=== PATIENT | male | born 1940 | race Caucasian/White ===

== ENCOUNTER 2016-10-28 00:09 | Observation (INO) | payer OTHER, BC ==
--- NOTE | 2016-10-28 00:27 | EDPHY ---
H & P Stated Complaint: pt fell, pt thinks related to combo of severe restless legs/ marijuana use HPI/ROS: HPI CHIEF COMPLAINT: Syncope, fall, head injury, restless leg syndrome HISTORY OF PRESENT ILLNESS: This patient very pleasant 76-year-old male who presents emergency room by private vehicle with his after he had a syncopal episode in the bathroom with head strike. Sustained a forehead laceration. He does report to me that he had a syncopal episode. No preceding symptoms. He additionally tells me that he has very bad restless leg syndrome he takes 3000 mg of Neurontin as well as Requip. But he has been out of his Requip for the past 2 hours. Upon arrival here to the emergency room he required a wheelchair back to ER room 4 where I greeted him. He was placed on a full director of cardiac rehabilitation his heart rate is been noted to be in the 30s to 40s. His does report that he has a low heart rate. However not typically in the 30s. The patient appears very restless with abnormal leg movement. However during my interview and exam the patient has waxing waning mental status and is somewhat unresponsive at times. Patient denies chest pain or shortness of breath. He does complain of a headache. Due to the patient's altered mental status. Patient has been sent to CT scan of his head. Past Medical History: Hypertension, restless leg syndrome, Follicular lymphoma , history of abscess drainage Past Surgical History: No recent surgery Social History: Endorses daily use of marijuana, denies illicit drugs or alcohol. Lives here in the summer. However resides in [place]. His physicians are in [place]. Family History: Noncontributory. ROS REVIEW OF SYSTEMS: A comprehensive 10 point review of systems is otherwise negative aside from elements mentioned in the history of present illness. Exam Constitutional very restless, agitated, waxing waning mental status, triage nursing summary reviewed, vital signs reviewed, awake/alert. Eyes normal conjunctivae and sclera, EOMI, PERRLA. HENT head/neck: 4 cm horizontal forehead laceration. Otherwise atraumatic exam. No neck pain moist mucus membranes, no epistaxis, neck supple/ no meningismus, no raccoon eyes. Respiratory clear to auscultation bilaterally, normal breath sounds, no respiratory distress, no wheezing. Cardiovascular bradycardic, regular rhythm, no murmur, no edema, distal pulses normal. Gastrointestinal soft, non-tender, no rebound, no guarding, normal bowel sounds, no distension, no pulsatile mass. Genitourinary no CVA tenderness. Musculoskeletal no midline vertebral tenderness, full range of motion, no calf swelling, no tenderness of extremities, no meningismus, good pulses, neurovascularly intact. Skin pink, warm, & dry, no rash, skin atraumatic. Neurologic waxing and waning mental status, sometimes lucid, sometimes unresponsive, abnormal leg movements appears agitated. Psychiatric waxing waning mental status, agitated, restless, lethargic at times. Heme/Lymph/Immune no lymphadenopathy. Differential Diagnosis: Includes but is not limited to in a particular order symptomatic bradycardia, heart block, dehydration, electrolyte disturbance, intracranial trauma, head bleed, skull fracture, subdural, epidural, subarachnoid, forehead laceration, restless leg syndrome, medication overdose, medication withdrawal, marijuana intoxication Medical Decision Making: Plan for this patient he is noted to be altered with waxing waning mental status after head trauma. Will proceed directly to CT scan to rule out significant trauma. Be placed on full director of cardiac rehabilitation will obtain EKG due to his bradycardia, obtain blood work, IV establishment, close cardiac monitoring. Re-evaluate closely. Re-evaluation: EKG interpretation by me on record in [facility] system. Impression time of EKG 05/15/1999, this is sinus arrhythmia rate of 52. Q-waves noted V1 V2 V3. No ST elevation. NE interval noted to be 196. No evidence of heart block. No old EKG to compare this to. 0104AM: The patient is now back from CT. He speaking to me coherently. His legs very restless. He denies any complaints at this time. Due to him being so restless I have ordered him IV Ativan 1 mg. His current heart rate is 67 pulse ox 96% on room air, respiratory rate 18, blood pressure 119/76. Laceration Repair Procedure: Verbal Consent was obtained, Under sterile conditions, The patient had lidocaine with epinephrine used approximately 4ccs to local anesthetize the forehead 4 cm horizontal Laceration. The wound was copiously irrigated with sterile fluid, the wound was explored for foreign bodies there were none visualized, the wound was explored with a sterile glove to the base. There are no deep structures involved, including no arterial injury. TWO interrupted 5.O PROLENE Sutures were placed in this patient's laceration. He had good close approximation of the wound edges. He Tolerated this well. ED CT scan head and neck without contrast for trauma showed no acute traumatic injury. 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 0121AM: At this time this patient is doing better with 1 mg IV Ativan. 0125AM: I did re-evaluate this patient this time. Blood pressure 90/78. Heart rate 71. Pulse ox 93% on 2 L he is stable. He is mentating appropriately with me. He did receive 1 mg IV Ativan for restless leg syndrome. This is not really improve much of his abnormal leg movements. He does appear slightly more relaxed. I have consult the hospitalist service for admission reason for admission is syncope, transient bradycardia, waxing waning mental status. Source: Patient - Personal History Current Tetanus Diphtheria and Acellular Pertussis (TDAP): Unsure - Medical/Surgical History Hx Asthma: No Hx Chronic Respiratory Disease: No Hx Diabetes: No Hx Cardiac Disease: Yes Hx Renal Disease: No Hx Cirrhosis: No Hx Alcoholism: No Hx HIV/AIDS: No Hx Splenectomy or Spleen Trauma: No Other PMH: lymphoma, restless leg syndrome, hypertension, sleep apnea, ongoing abcess on buttock, multiple surg related to abcess, laminectomy x 3, multiple hand surg - Social History Smoking Status: Former smoker Constitutional: Initial Vital Signs Temperature (C) 36.7 C 10/28/16 00:12 Heart Rate 60 10/28/16 00:12 Respiratory Rate 16 10/28/16 00:12 Blood Pressure 129/80 H 10/28/16 00:12 O2 Sat (%) 93 10/28/16 00:12 O2 Delivery Mode Nasal Cannula O2 (L/minute) 2 Allergies/Adverse Reactions: diphenhydramine Allergy (Unknown, Unverified 10/29/16 13:53) Home Medications: Medication Instructions Recorded Modafinil [Provigil] 300 mg PO DAILY 10/28/16 Naproxen Sodium [Aleve 220 MG (*)] 220 - 440 mg PO DAILY PRN 10/28/16 Sellers-3 Fatty Acids [Fish Oil 1000 1,000 mg PO DAILY 10/28/16 mg (*)] Valacyclovir HCl [Valtrex] 1,000 mg PO BID 10/28/16 Acetaminophen [Tylenol 325mg (*)] 650 mg PO Q4HRS PRN #0 tab 10/29/16 Gabapentin 2,400 mg PO HS #90 tablet 10/29/16 Valsartan [Diovan (*)] 80 mg PO BID #60 tab 10/29/16 amLODIPine BESYLATE [Norvasc 5 mg 5 mg PO DAILY #30 tab 10/29/16 (*)] rOPINIRole HCL [Requip 5mg (*)] 10 mg PO HS #36 tab 10/29/16 rOPINIRole HCL [Ropinirole HCl] 1 mg PO HS #63 tablet 10/29/16 Medical Decision Making - Data Points Laboratory Results: Laboratory Results 10/28/16 00:40 10/28/16 00:40 Medications Given: Discontinued Medications Amlodipine Besylate (Norvasc) 5 mg PO DAILY [facility] Stop: 04/26/17 14:59 Last Admin: 10/29/16 08:58 Dose: 5 mg Enoxaparin Sodium (Lovenox) 40 mg SC DAILY [facility] Stop: 04/26/17 15:59 Last Admin: 10/29/16 08:53 Dose: 40 mg Gabapentin (Neurontin) 1,000 mg PO EDNOW ONE Stop: 10/28/16 01:44 Last Admin: 10/28/16 01:52 Dose: Not Given Gabapentin (Neurontin) 200 mg PO ONCE ONE Stop: 10/28/16 02:01 Last Admin: 10/28/16 02:35 Dose: Not Given Gabapentin (Neurontin) 800 mg PO ONCE ONE Stop: 10/28/16 02:01 Last Admin: 10/28/16 01:52 Dose: 200 mg Gabapentin (Neurontin) 1,400 mg PO EDNOW ONE Stop: 10/28/16 03:16 Last Admin: 10/28/16 03:28 Dose: Not Given Gabapentin (Neurontin) 1,200 mg PO ONCE ONE Stop: 10/28/16 03:31 Last Admin: 10/28/16 03:22 Dose: 1,200 mg Gabapentin (Neurontin) 200 mg PO ONCE ONE Stop: 10/28/16 03:31 Last Admin: 10/28/16 03:27 Dose: 200 mg Gabapentin (Neurontin) 2,400 mg PO HS [facility] Stop: 04/26/17 20:59 Last Admin: 10/28/16 21:41 Dose: 2,400 mg Sodium Chloride (Ns) 1,000 mls @ 0 mls/hr IV EDNOW ONE; Wide Open PRN Reason: Protocol Stop: 10/28/16 00:40 Last Admin: 10/28/16 01:07 Dose: 1,000 mls Lorazepam (Ativan Injection) 1 mg IVP EDNOW ONE Stop: 10/28/16 01:05 Last Admin: 10/28/16 01:07 Dose: 1 mg Modafinil (Provigil) 300 mg PO DAILY [facility] Stop: 04/26/17 13:29 Last Admin: 10/29/16 08:54 Dose: 300 mg [id number] Ethyl Esters (Fish Oil) 1,000 mg PO DAILY [facility] Stop: 04/27/17 08:59 Last Admin: 10/29/16 08:54 Dose: 1,000 mg Oxycodone HCl (Oxycodone Ir) 5 mg PO ONCE ONE Stop: 10/28/16 01:56 Last Admin: 10/28/16 02:06 Dose: 5 mg Oxycodone HCl (Oxycodone Ir) 5 mg PO Q6 [facility] Stop: 11/07/16 05:59 Last Admin: 10/29/16 06:13 Dose: Not Given Ropinirole HCl (Requip) 1 mg PO EDNOW ONE Stop: 10/28/16 01:34 Last Admin: 10/28/16 01:50 Dose: 1 mg Ropinirole HCl (Requip) 1 mg PO ONCE ONE Stop: 10/28/16 02:28 Last Admin: 10/28/16 02:34 Dose: 1 mg Ropinirole HCl (Requip) 10 mg PO EDNOW ONE Stop: 10/28/16 03:13 Last Admin: 10/28/16 03:26 Dose: Not Given Ropinirole HCl (Requip) 10 mg PO EDNOW ONE Stop: 10/28/16 03:16 Last Admin: 10/28/16 03:23 Dose: 10 mg Ropinirole HCl (Requip) 10 mg PO HS [facility] Stop: 04/26/17 20:59 Last Admin: 10/28/16 21:42 Dose: 10 mg Valacyclovir HCl (Valtrex) 1,000 mg PO BID [facility] Stop: 04/26/17 20:59 Last Admin: 10/29/16 09:18 Dose: Not Given Valsartan (Diovan) 80 mg PO BID [facility] Stop: 04/26/17 20:59 Last Admin: 10/29/16 08:55 Dose: 80 mg Departure - Departure Disposition: [facility] Inpatient Acute Clinical Impression: Bradycardia, Laceration Head injury Qualifiers: Encounter type: initial encounter Qualified Code(s): S09.90XA - Unspecified injury of head, initial encounter Altered mental status Qualifiers: Altered mental status type: unspecified Qualified Code(s): R41.82 - Altered mental status, unspecified Condition: Fair
[2016-10-28] MEDS ORDERED: NS 1,000 ML IV ONE (00:39)
--- NOTE | 2016-10-28 00:39 | CPEKG ---
Heart Rate: 52 RR Interval: 1154 P-R Interval: 196 QRSD Interval: 108 QT Interval: 472 QTC Interval: 439 P [place]: 20 QRS [place]: 11 T Wave [place]: 2 EKG Severity - BORDERLINE ECG - EKG Impression: SINUS ARRHYTHMIA, RATE 41-59 EKG Impression: BORDERLINE R WAVE PROGRESSION, ANTERIOR LEADS Electronically Signed By: Nani Wells 28-Oct-2016 15:26:40
[2016-10-28 00:53] LABS: % IMMATURE GRANULYOCYTES 1.9 % (0.0-1.1); ABSOLUTE IMMATURE GRANULOCYTES 0.14 10^3/uL (0.00-0.10); ADD DIFF? NO; ADD MORPH? NO; ADD SCAN? NO; ATYPICAL LYMPHOCYTE FLAG 0 (0-99); FRAGMENT RBC FLAG 0 (0-99); HEMATOCRIT 36.5 % (40.0-51.0); HEMOGLOBIN 13.1 g/dL (13.7-17.5); LEFT SHIFT FLG 0 (0-99); LIPEMIA HEMOLYSIS FLAG 90 (0-99); MEAN CELL HEMOGLOBIN 32.4 pg (27.9-34.1); MEAN CELL HEMOGLOBIN CONCENTR. 35.9 g/dL (32.4-36.7); MEAN CELL VOLUME 90.3 fL (81.5-99.8); MEAN PLATELET VOLUME 9.6 fL (8.7-11.7); PLATELET CLUMPS FLAG 0 (0-99); PLATELET COUNT 218 10^3/uL (150-400); RED BLOOD CELL COUNT 4.04 10^6/uL (4.40-6.38); RED CELL DISTRIBUTION WIDTH 13.3 % (11.5-15.2)
[2016-10-28 00:59] LABS: ALANINE AMINOTRANSFERASE 32 IU/L (21-72); ALBUMIN 3.8 g/dL (3.5-5.0); ALKALINE PHOSPHATASE 88 IU/L (38-126); ANION GAP 9 mEq/L (8-16); APTT 23.7 SEC (23.0-38.0); ASPARTATE AMINOTRANSFERASE 29 IU/L (17-59); BILIRUBIN,TOTAL 0.4 mg/dL (0.1-1.4); BILIRUBIN-CONJUGATED 0.2 mg/dL (0.0-0.5); BILIRUBIN-UNCONJUGATED 0.2 mg/dL (0.0-1.1); CARBON DIOXIDE 28 mEq/l (22-31); CHLORIDE 101 mEq/L (97-110); CREATININE 0.9 mg/dL (0.7-1.3); ETHANOL SERUM < 10 mg/dL (0-10); GLOMERULAR FILTRATION RATE > 60; GLUCOSE 95 mg/dL (70-100); INR 1.05 (0.83-1.16); MAGNESIUM 1.9 mg/dL (1.6-2.3); POTASSIUM 3.7 mEq/L (3.5-5.2); PROTIME(PATIENT) 13.6 SEC (12.0-15.0); SODIUM 138 mEq/L (134-144); TOTAL PROTEIN 6.8 g/dL (6.3-8.2)
[2016-10-28] MEDS ORDERED: LORazepam 2 MG/ML INJ IVP ONE (01:04)
[2016-10-28] MEDS ORDERED: LORazepam 2 MG/ML INJ ONE (01:05)
[2016-10-28 01:11] LABS: CREATINE KINASE-MB FRACTION 1.97 ng/mL (0.00-3.19); TROPONIN I < 0.012 ng/mL (0.000-0.034)
[2016-10-28] MEDS ORDERED: GABAPENTIN 100 MG CAP PO ONE ×3 (01:43→03:30)
[2016-10-28] MEDS: GABAPENTIN 400 MG CAP PO ONE ×2 (01:51→01:52)
[2016-10-28] MEDS ORDERED: LORazepam 2 MG/ML INJ IVP PRN ×2 (01:53→02:10)
[2016-10-28] MEDS ORDERED: ACETAMINOPHEN 325 MG TAB PO PRN (01:53)
[2016-10-28] MEDS ORDERED: ONDANSETRON 4 MG/2 ML VIAL IVP PRN (01:53)
[2016-10-28] MEDS ORDERED: ONDANSETRON DISINTEGRATING 4 MG TAB PO PRN (01:53)
[2016-10-28] MEDS ORDERED: oxyCODONE IR 5 MG TAB PO ONE (01:55)
[2016-10-28] MEDS ORDERED: oxyCODONE IR 5 MG TAB ONE (02:02)
--- NOTE | 2016-10-28 02:59 | GHP ---
[f rep st] HISTORY AND PHYSICAL DATE OF ADMISSION: 10/28/2016 CHIEF COMPLAINT: Possible syncope. HISTORY OF PRESENT ILLNESS: This is a 76-year-old man with a history of restless legs syndrome who presents after a fall. This was unwitnessed. His attention waxes and wanes a little bit. He is ac companied by his , who provides some of the history. Apparently, they live in [place] for 4 mon ths out of the year and live in [place] for the remainder of the year. They have just arrived ou t here. He ran out of his Requip en route and was supposed to refill it today though they arrived a fter the pharmacy had closed. He is in almost constant movements when I am seeing him, his say s that she has seen him like this before though this is one of the worst episodes. In terms of the syncope, this was unwitnessed, his was in the condo, heard a crash, went up to see him and he had a wet towel on his head. He told the ED physician that he passed out though this history has been inconsistent. He was bradycardic and diaphoretic when [facility]. He sustained a laceration to his forehead, which was sutured in the ED. In terms of his restless legs syndrome, his tells me that he was diagnosed with this about 30 y ears ago, he takes Requip and gabapentin. He has had severe episodes before during hospitalizations , and is more associated with anesthesia. Apparently, he has exacerbations when he is off his Requi p, as he is today. He tells me he takes 3 g of gabapentin once at night. He was at one time on Oxy Contin for this. His tells me that he has not slept for the past 2 days because of ongoing movements. PAST MEDICAL/SURGICAL HISTORY: 1. Restless legs syndrome, as above. 2. History of lymphoma, his is not sure exactly which type. 3. History of a chronic perirectal abscess. 4. History of back surgery. 5. History of trigger finger surgery. MEDICATIONS: Please see medication reconciliation. ALLERGIES: Benadryl. FAMILY HISTORY: Reviewed and unremarkable. SOCIAL HISTORY: Accompanied by his . Lives in [place] and in [place]. REVIEW OF SYSTEMS: A 10-point review of systems is conducted and is negative except per HPI. PHYSICAL EXAM: VITAL SIGNS: Blood pressure 155/74, heart rate 74, respiration rate 16, saturating 93% on 2 L. Temperature is 36.7. GENERAL: The patient is a pleasant man, who is quite uncomfortab le moving almost constantly in bed in non rhythmic, bilateral, non choreiform-type movements. HEENT : Shows him to have a laceration with sutures on his forehead. CARDIOVASCULAR: Shows him to be re gular. There are no murmurs, rubs, or gallops. PULMONARY: Lungs clear to auscultation bilaterally . ABDOMEN: Soft, nontender, nondistended. SKIN: Shows no rash. : Shows no Cheema. NEUROLOGIC : Shows him to be waxing and waning. He can tell us where he is and knows who he is. Movements as above. PSYCHIATRIC: Unobtainable. LABS: CBC is relatively unremarkable. INR is normal. Basic metabolic panel, LFTs are normal. Lip ase is negative. Troponin is negative. Alcohol level is normal. DATA: 1. I discussed this with Dr. Garcia. 2. I reviewed preliminary reports on his head CT which are negative. C-spine CT shows nothing acut e but degenerative disease. His chest x-ray, which I personally reviewed and interpreted, shows nor mal heart size. Nothing acute. 3. EKG, which I personally reviewed and interpreted, shows sinus arrhythmia. He has a mild T-wave inversion in lead 3. He is bradycardic with a rate of 52. I do not see any dropped P-waves. There is maybe slow R-wave progressions in the precordial leads. IMPRESSION AND PLAN: A 76-year-old man admitted with syncope as well as severe restless legs syndro me. 1. Syncope: This diagnosis is somewhat unclear to me. It is concerning that he was bradycardic on admission. We will monitor him on telemetry. Trend troponins. Get an echocardiogram in the [facility]. Follow his clinical course. 2. Severe reported restless legs syndrome: I reviewed his old records, he appears to take very hig h doses of ropinirole. I am not really comfortable giving him more than 2 mg currently. He has got ten 1 mg already. I will give him a second. He was given 2 mg of Ativan in the emergency departmen t. I have also given him some oxycodone. I have placed a neurology consult for assistance with thi s. 3. Reported perirectal abscess: Appears to be chronic and not acute. He has no white count at thi s point. 4. Ongoing movements: I have ordered a CK. 5. Code status: His tells me he has never had this addressed before, but she would like him t o be full code. I think this is appropriate. 6. Encephalopathy: He has not slept for 2 days. I think that this is likely due to his ongoing mo vements and sleep. We will him follow closely and see if this resolves when things are better contr olled. /[id number]/MODL
[2016-10-28] MEDS ORDERED: GABAPENTIN 300 MG CAP PO ONE (03:15)
[2016-10-28] MEDS ORDERED: GABAPENTIN 400 MG CAP PO ONE (03:30)
[2016-10-28 04:55] LABS: % IMMATURE GRANULYOCYTES 2.4 % (0.0-1.1); ABSOLUTE IMMATURE GRANULOCYTES 0.16 10^3/uL (0.00-0.10); ADD DIFF? NO; ADD MORPH? NO; ADD SCAN? NO; ATYPICAL LYMPHOCYTE FLAG 0 (0-99); FRAGMENT RBC FLAG 0 (0-99); HEMOGLOBIN 12.2 g/dL (13.7-17.5); LEFT SHIFT FLG 0 (0-99); LIPEMIA HEMOLYSIS FLAG 90 (0-99); MEAN CELL HEMOGLOBIN 32.7 pg (27.9-34.1); MEAN CELL HEMOGLOBIN CONCENTR. 35.9 g/dL (32.4-36.7); MEAN CELL VOLUME 91.2 fL (81.5-99.8); MEAN PLATELET VOLUME 10.2 fL (8.7-11.7); PLATELET CLUMPS FLAG 0 (0-99); PLATELET COUNT 209 10^3/uL (150-400); RED BLOOD CELL COUNT 3.73 10^6/uL (4.40-6.38); RED CELL DISTRIBUTION WIDTH 13.6 % (11.5-15.2)
[2016-10-28 05:03] LABS: ALANINE AMINOTRANSFERASE 32 IU/L (21-72); ALBUMIN 3.4 g/dL (3.5-5.0); ALKALINE PHOSPHATASE 77 IU/L (38-126); ANION GAP 10 mEq/L (8-16); ASPARTATE AMINOTRANSFERASE 32 IU/L (17-59); BILIRUBIN,TOTAL 0.6 mg/dL (0.1-1.4); CALCIUM 8.8 mg/dL (8.5-10.4); CARBON DIOXIDE 26 mEq/l (22-31); CHLORIDE 104 mEq/L (97-110); CREATININE 0.9 mg/dL (0.7-1.3); GLOMERULAR FILTRATION RATE > 60; GLUCOSE 103 mg/dL (70-100); POTASSIUM 3.6 mEq/L (3.5-5.2); SODIUM 140 mEq/L (134-144)
[2016-10-28 05:05] LABS: TROPONIN I < 0.012 ng/mL (0.000-0.034)
[2016-10-28] MEDS: oxyCODONE IR 5 MG TAB PO SCH ×3 (06:00→17:41)
--- NOTE | 2016-10-28 11:11 | PDCONSULT ---
[employer] Note: HOSPITAL NEUROLOGY CONSULT REQUESTING: Vicente Phillips MD REASON: restless leg syndrome HPI: 76 year old man with a history of severe RLS who presented to our facility yesterday due to a syncopal episode. Patient is visiting [place] for an extended period of time. He is originally from [place]. He notes longstanding RLS "for all of my life" that he describes as a severe sense of abnormal movement under the skin of the LEs, but can involve the whole body. This commands the need to move to relieve the symptoms. Symptoms generally manifest around 6pm, but can be intrusive into daytime hours. He states he has been followed by a neurologist in [place] and been maintained on medication for over 10 years. He currently uses gabapentin 3000mg at night and ropinirole 6-12mg at night. He is not sure about the status of his ferritin level. Regardless, he has to take modafinil every day due to daytime sedation. He states the medication helps, but he still gets symptoms, which are seemingly getting worse. He presented to our ED due to a syncopal episode yesterday. He was feeling quite lightheaded and states he didn't feel like himself. By report, his heard a sound in their accommodations and he was on the floor with a wet rag on his head. He seemed out of it. He was transported to the ED where his HR was found to be in the 30s-40s in triage. He was altered. His BP had been noted to be low as well. He was stabilized and transferred to the floor. He notes his RLS symptoms have been very severe over the 2 nights prior to admission. He had not slept those 2 nights. He ran out of ropinirole just before arriving in [place], but couldn't get a refill because the pharmacies were closed. Thus, he had been one night without high dose ropinirole. ROS: As per the HPI, otherwise a complete 12 point ROS was performed and is negative ALLERGIES AND MEDS: As recorded in the EMR - reviewed and reconciled PFSH: As per the intake H&P by Dr. Phillips from yesterday EXAM: VS reviewed in EMR GEN: WDWN laying in NAD HEENT: NCAT, sclera anicteric, conjunctiva not injected, MMM, oropharynx clear, no scalp tenderness NECK: supple, nontender, no meningismus CV: RRR s1 s2 wo m/r/c/g. Carotid pulses 2+ wo bruit NEURO: MS: awake, alert, oriented to all spheres. Speech nondysarthric, but content is tangential. No language disturbance. Follows commands. Attends to both sides. Recent/remote memory grossly intact. Mood euthymic. Good fund of knowledge. CN: pupils 4mm round and reactive. Fundi with sharp discs. VFF. Primary gaze centered. Full ocular motility. Facial sensation preserved. Face symmetric. Hearing grossly intact to finger rub. Palatoglossal movements intact. Shoulder shrug and head turn strong. MOTOR: normal bulk/tone. No adventitial movements. Full power throughout. SENSORY: intact to all modalities throughout. No extinction. COORD: no ataxia FN/HS. Bogdan preserved. REFLEX: plantars down. No clonus. DTRS absent. GAIT: deferred to PT safety eval DATA REVIEW: Labs reviewed in EMR PERSONALLY INTERPRETED RESULTS AND DATA: None IMPRESSION AND RECOMMENDATIONS: // SYNCOPE // RLS // POLYPHARMACY Patient with syncopal episode and evidence of bradycardia and relative hypotension. Syncopal workup ongoing per primary team. With regard to his RLS, he is on extremely high doses of medication. I don't think he is on safe doses of ropinirole or gabapentin. I am not surprised he is needing modafinil to maintain alertness in the daytime. His worsening symptoms are likely due to paradoxical response to his medication, primarily ropinirole (ie augmentation phenomenon). I would advise slowly tapering these medications to discontinuation with a complete washout period of 4 weeks, then consultation with sleep medicine for expert opinion on treatment options, particularly given his prior exposure to typical platform treatment options. He was counseled to avoid caffeine, alcohol and smoking. Defer ferritin level check to outpatient setting. Would avoid benzos and opiates in treatment of RLS given his advanced age, syncope/fall history. Followup with sleep medicine as per above. No further recommendations. Will sign off.
[2016-10-28] MEDS ORDERED: MODAFINIL PO SCH (13:15)
--- NOTE | 2016-10-28 14:12 | ECHO ---
[id number] + + [address] : : [place] [address] : : [phone] + + Adult Echocardiographic Report + -----+ :Name: Rex MCRAE Date: 10/28/2016 08:08 AM : : Hospital Admission Number: [id number] Location : 210: :: 1940 Gender: Male Height: 72 in : :Age: 76 yrs Race: WH Weight: 208 lb : :Reason For Study: Eval LV Fx : : BSA: 2.2 meters2 : :History: Syncope, Restless : + -----+ MMode/2D Measurements \T\ Calculations IVSd: 0.98 cm LVIDd: 5.4 cm FS: 38.0 % Ao root diam: 3.7 cm LVPWd: 1.0 cm LVIDs: 3.3 cm EDV(Teich): 139.3 ml ACS: 2.4 cm ESV(Teich): 45.1 ml EF(Teich): 67.7 % Normal Measurement Values: + + :LVIDd (3.5-5.7cm) IVSd (0.6-1.1cm) LVPWd (0.6-1.1cm) Aortic Root (2.0-3.7cm)Left Atrium (1.5-4.0cm): :LV Vol(d) (76-115ml) LV Vol(s) (29-48ml) Ejec Fraction (50-65%)PV Rick (0.6- 1.2m/s) TV Rick (0.4-1.0m/s) : :MV E Rick (0.8-1.0m/s)MV A Rick (0.3-1.0m/s)LVOT Rick (0.7-1.2m/s) Asc Ao Rick ( 0.9-1.8m/s) : + + Doppler Measurements \T\ Calculations MV E max rick: Ao V2 max: LV V1 max: PA V2 max: 67.6 cm/sec 150.7 cm/sec 127.7 cm/sec 90.9 cm/sec MV A max rick: Ao max PG: LV V1 max PG: PA max P.6 cm/sec 9.1 mmHg 6.5 mmHg 3.3 mmHg MV E/A: 0.94 TR max rick: 274.2 cm/sec TR max P.1 mmHg RAP systole: 5.0 mmHg RVSP(TR): 35.1 mmHg Left Ventricle The left ventricle is normal in size. There is normal left ventricular wall thickness. The left ventricular ejection fraction is normal. There is Doppler evidence for diastolic dysfunction. Ejection Fraction = 65%. No regional wall motion abnormalities noted. Right Ventricle The right ventricle is normal in size and function. Atria The left atrial size is normal. Right atrial size is normal. Mitral Valve The mitral valve is normal in structure and function. There is no evidence of mitral valve prolapse. There is no mitral valve stenosis. There is no mitral regurgitation noted. Tricuspid Valve Normal tricuspid valve. There is trace tricuspid regurgitation. Aortic Valve The aortic valve is not well visualized. There is no aortic stenosis. There is no aortic insufficiency. Pulmonic Valve The pulmonic valve is not well visualized. There is no pulmonic valvular regurgitation. Great Vessels The aortic root is normal size. Pericardium/Pleural There is no pericardial effusion. There is a fat pad seen. Conclusion A complete two-dimensional transthoracic echocardiogram was performed (2D, M-mode, Doppler and color flow Doppler). 1. The patient was quite restless and combative during exam. 2. The left ventricle is normal in size and function. The Ejection Fraction = 65%. 3. The mitral valve is normal in structure and function. 4. The aortic valve is not well visualized. There is no aortic stenosis. There is no aortic insufficiency. 5. No old studies for comparison. Final Reading Physician: Casey Umanzor MD electronically signed on 10/28/2016 02:10 PM Ordering Physician: Vicente Phillips Performed By: Jacques Graham, [facility]
[2016-10-28] MEDS ORDERED: NAPROXEN SODIUM 220 MG TAB PO PRN (14:54)
[2016-10-28] MEDS: MODAFINIL 100 MG TAB PO SCH (15:05)
--- NOTE | 2016-10-28 15:47 | HOSPPROG ---
Hospitalist Progress Note Assessment/Plan: Assessment: 76-year-old male presents with acute mechanical fall in the setting acute encephalopathy, polypharmacy Plan: 1. Mechanical fall. Acute, secondary to polypharmacy with resultant encephalopathy, resulting in unsteady gait -patient continues to be high fall risk, unsafe for discharge home -continue to engage in physical and occupational therapy 2. Acute encephalopathy. Evidenced by global brain dysfunction characterized as confusion, lethargy, all of which are an acute change from patient's baseline , secondary metabolic effects of polypharmacy as well as impaired sleep for the past 2 nights patient has been traveling from [place] to [place] -patient's cognition is improving, but he continues to have some evidence of thought blocking and remains high fall risk 3. Polypharmacy. 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 Betancourt, appreciate Neurology consultation, he recommends long-term taper of ropinirole followed by 4 weeks washout. Given that it is most likely producing amplified, paradoxical affect -continue gabapentin -continue Provigil 4. Suspected obstructive sleep apnea. Placed on CPAP, recommend outpatient sleep study 5. Hypertension chronic, patient has been on 4 agents, with recent up titration is medication -his systolic blood pressures range between 100 and 110, I fear the patient has been somewhat overmedicated, potentiating his above fall -reduced amlodipine to 5 mg daily, reduced valsartan to 80 mg daily -discontinued diuretic and Bystolic given bradycardia and hypotension Diet. Regular Prophylaxis. High risk patient, Lovenox 40 Code. Full Disposition. Upgraded to inpatient admission status, anticipated length stay is greater than 48 hours for reasonable medical necessity including hypotension today with bradycardia, requiring ongoing medication management, as well as persistent encephalopathy and impaired gait, placing the patient high risk mechanical falls, requires ongoing work with therapy. Patient is high risk of recurrent fall and mortality if discharged at this time. Subjective: Counseled patient that his medications are most likely resulting in his worsened leg movements, fall Objective: Vital Signs Temp Pulse Resp BP Pulse Ox 36.7 C 48 L 15 110/54 L 96 10/28/16 11:58 10/28/16 11:58 10/28/16 11:58 10/28/16 11:58 10/28/16 11:58 Laboratory Results 10/28/16 04:16 10/28/16 04:16 10/27/16 10/28/16 10/29/16 05:59 05:59 05:59 Intake Total 1000 Balance 1000 PT 13.6 SEC (12.0-15.0) 10/28/16 00:40 INR 1.05 (0.83-1.16) 10/28/16 00:40 - Time Spent With Patient Time Spent with Patient: greater than 35 minutes Time Spent with Patient: Greater than 35 minutes spent on this patients care, greater than 50% of time spent counseling, educating, and coordinating care regarding the above mentioned plan. - Physical Exam Constitutional: no apparent distress, not in pain, chronically ill appearing, No uncomfortable Cardiovascular: regular rate and rhythym, no murmur, rub, or gallop Respiratory: no respiratory distress, no rales or rhonchi, clear to auscultation Gastrointestinal: normoactive bowel sounds, soft, non-tender abdomen, no palpable masses Skin: other (Small laceration on the 4) Neurologic: AAOx3, sensation intact bilaterally, CN II-XII Intact, other ( Intermittent movements of his legs), No weakness Psychiatric: thought process linear, anxious, other (Somewhat slurred speech), No agitated ICD10 Worksheet Patient Problems: Problems Problem Status Onset Bradycardia Acute Head injury Acute Altered mental status Acute Laceration Acute
--- NOTE | 2016-10-28 15:50 | WOCRNPDOC ---
WOCRN Advanced Assessment Note - Skin Integrity Problem, Advanced Assess Right Perianal Surgical Wound/Incision Dressing Type: Open to Air Exudate Amount: Scant Exudate Color: Reddish/Yellow Exudate Characteristic(s): Serosanguinous Integumentary Issue Intervention: Dressing Applied Abhinav Wound Tissue: Blanching, Intact Abhinav Wound Swelling: None Wound Bed Color: Red Wound Bed Constitution: Smooth Tissue (red, non-granulating) Site Odor: Slight Site Measurement - Head-to-Toe Length X Width X Depth (cm): 0.4cmx0.3cmx0.4cm Skin Integrity Problem Comment: Small, discrete opening to the R of patient's anus, w/ scant exudate. Per patient report, this is a chronic, non-healing wound , previously believed to be either a fistula or tract emmanating from an abscess. He says an abscess was discovered in February 2015, and he underwent an I&D at that time. He was unable to recall the specific location of the abscess, but says he has had multiple assessments by various specialists since then. After an attempted surgical repair, the concensus has been that this tract is non-healing and chronic. Current recommendation from his physician in [place] is to wear briefs to manage the drainage still coming from this wound. Upon assessment today, wound does not have much appreciable depth, only 0.4cm when probed w/ cotton-tipped applicator. The tissue is red and beefy, and bled when site was cleansed and explored. It is possible that the tract is healing in; wound is not deep enough to pack. There is no abhinav-wound erythema or induration, and no fluctuance observed when site palpated. I packed wound w/ Noemí Ag collagen, which will dissolve in wound and also provide some structure to which cells can adhere. His watched the dressing application, and was given some additional supplies to take home for subsequent dressing changes. I spoke to them both about going to the outpatient wound healing center after DC if they want additional input about this wound. Report given to editorial director Aimee.
[2016-10-28] MEDS: amLODIPine BESYLATE 5 MG TAB PO SCH (15:59)
[2016-10-28] MEDS: ENOXAPARIN 40 MG/0.4 ML SYR SC SCH (17:41)
[2016-10-28 19:53] VITALS: RESP 18
[2016-10-28] MEDS ORDERED: GABAPENTIN 300 MG CAP PO SCH (21:00)
[2016-10-28] MEDS ORDERED: NON-FORMULARY NEW DRUG (Valacyclovir Hcl [Valtrex] 1,000 MG) PO SCH (21:00)
[2016-10-28] MEDS ORDERED: GABAPENTIN 400 MG CAP PO SCH (21:00)
[2016-10-28] MEDS: valACYclovir 500 MG TAB PO SCH (21:35)
[2016-10-28] MEDS: VALSARTAN 80 MG TAB PO SCH (21:36)
[2016-10-29] MEDS: oxyCODONE IR 5 MG TAB PO SCH ×2 (03:09→06:13)
[2016-10-29 04:41] LABS: ABSOLUTE IMMATURE GRANULOCYTES 0.13 10^3/uL (0.00-0.10); ADD DIFF? NO; ADD MORPH? NO; ADD SCAN? NO; ATYPICAL LYMPHOCYTE FLAG 0 (0-99); FRAGMENT RBC FLAG 0 (0-99); HEMATOCRIT 34.1 % (40.0-51.0); HEMOGLOBIN 11.9 g/dL (13.7-17.5); LEFT SHIFT FLG 0 (0-99); LIPEMIA HEMOLYSIS FLAG 90 (0-99); MEAN CELL HEMOGLOBIN 32.2 pg (27.9-34.1); MEAN CELL HEMOGLOBIN CONCENTR. 34.9 g/dL (32.4-36.7); MEAN CELL VOLUME 92.4 fL (81.5-99.8); MEAN PLATELET VOLUME 9.3 fL (8.7-11.7); PLATELET CLUMPS FLAG 0 (0-99); PLATELET COUNT 198 10^3/uL (150-400); RED BLOOD CELL COUNT 3.69 10^6/uL (4.40-6.38); RED CELL DISTRIBUTION WIDTH 13.8 % (11.5-15.2)
[2016-10-29 05:07] LABS: ANION GAP 9 mEq/L (8-16); CALCIUM 8.8 mg/dL (8.5-10.4); CARBON DIOXIDE 29 mEq/l (22-31); CHLORIDE 98 mEq/L (97-110); CREATININE 0.8 mg/dL (0.7-1.3); GLOMERULAR FILTRATION RATE > 60; GLUCOSE 100 mg/dL (70-100); POTASSIUM 3.8 mEq/L (3.5-5.2); SODIUM 136 mEq/L (134-144)
[2016-10-29 07:50] VITALS: TEMP 98.4
[2016-10-29] MEDS: ENOXAPARIN 40 MG/0.4 ML SYR SC SCH (08:53)
[2016-10-29] MEDS: MODAFINIL 100 MG TAB PO SCH (08:54)
[2016-10-29] MEDS: VALSARTAN 80 MG TAB PO SCH (08:55)
[2016-10-29] MEDS: amLODIPine BESYLATE 5 MG TAB PO SCH (08:58)
[2016-10-29] MEDS ORDERED: OMEGA-3 FATTY ACIDS 1,000 MG CAP PO SCH (09:00)
[2016-10-29 09:16] VITALS: BP 137/80
[2016-10-29] MEDS: valACYclovir 500 MG TAB PO SCH (09:18)
--- NOTE | 2016-10-29 10:25 | PDIAF ---
- Diagnosis Diagnosis: Fall, Hypertension, Restless Legs Syndrome Code Status: Full Code - Medication Management Discharge Medications: Medications to Continue on Transfer Modafinil [Provigil] 300 mg PO DAILY 10/28/16 [Last Taken Unknown] Naproxen Sodium [Aleve 220 MG (*)] 220 - 440 mg PO DAILY PRN 10/28/16 [Last Taken Unknown] [place]-3 Fatty Acids [Fish Oil 1000 mg (*)] 1,000 mg PO DAILY 10/28/16 [Last Taken Unknown] Valacyclovir HCl [Valtrex] 1,000 mg PO BID 10/28/16 [Last Taken Unknown] Acetaminophen [Tylenol 325mg (*)] 650 mg PO Q4HRS PRN #0 tab 10/29/16 [Last Taken Unknown] Gabapentin 2,400 mg PO HS #90 tablet 10/29/16 [Last Taken Unknown] Valsartan [Diovan (*)] 80 mg PO BID #60 tab 10/29/16 [Last Taken Unknown] amLODIPine BESYLATE [Norvasc 5 mg (*)] 5 mg PO DAILY #30 tab 10/29/16 [Last Taken Unknown] rOPINIRole HCL [Requip 5mg (*)] 10 mg PO HS #36 tab 10/29/16 [Last Taken Unknown ] rOPINIRole HCL [Ropinirole HCl] 1 mg PO HS #63 tablet 10/29/16 [Last Taken Unknown] Custodial Antibiotics: NA Discharge Medications: Refer to the Discharge Home Medication list for PRN reason. PICC Care - Routine: N/A - Orders Services needed: Home Care, Registered Nurse, Physical Therapy Home Care Face to Face: I certify that this patient was under my care and that I had the required [id number] encounter meeting the encounter requirements on the discharge day. My findings support the fact that the patient is homebound as defined in CMS Chapter 7 Medicare Benefits Manual 30.1.1, The condition of the patient is such that there exists a normal inability to leave home and consequently, leaving home would require a considerable and taxing effort. Oxygen: NA Diet Recommendation: no restrictions on diet Weigh Patient: weekly Cheema: Not applicable Wound Care Instructions: Dressing change for R perianal wound: to be done every 3 days. May change outer dressing as needed. 1) flush wound w/ normal saline; alternatively patient may shower and wash w/ soap and water, or use squirt bottle w/ tap water to cleanse. 2) pat dry. 3) apply skin prep to surrounding skin. 4) tear off small piece of Noemí Promogran Ag, and gently pack into wound using a cotton-tipped applicator. 5) cover w/ small Allevyn Life dressing (in patient's wound care supplies) or a band-aid w/ adhesive borders on all 4 sides. If dressing is becoming saturated more than 2-3/day, patient may resume wearing protective briefs and continue applying the Noemí every 3 days. Please follow up with [facility] if you need ongoing wound care: [phone]. - Labs/Radiology BMP Date: 11/01/16 Call or Fax Lab and Imaging Results to: Dr. Claros - Follow Up Care Current Providers and Referrals: LJ ALLISON [Other] - As per Instructions Nicolas Claros MD [Medical Doctor] - 3-5 days (Please schedule appointment) Jonathon Betancourt DO [Doctor of Osteopathy] - follow up in 2 weeks
[2016-10-29 12:17] VITALS: PULSE 76; O2SAT 87
--- NOTE | 2016-10-29 14:08 | PDIAF ---
- Diagnosis Diagnosis: Fall, Hypertension, Restless Legs Syndrome Code Status: Full Code - Medication Management Discharge Medications: Medications to Continue on Transfer Modafinil [Provigil] 300 mg PO DAILY 10/28/16 [Last Taken Unknown] Naproxen Sodium [Aleve 220 MG (*)] 220 - 440 mg PO DAILY PRN 10/28/16 [Last Taken Unknown] [place]-3 Fatty Acids [Fish Oil 1000 mg (*)] 1,000 mg PO DAILY 10/28/16 [Last Taken Unknown] Valacyclovir HCl [Valtrex] 1,000 mg PO BID 10/28/16 [Last Taken Unknown] Acetaminophen [Tylenol 325mg (*)] 650 mg PO Q4HRS PRN #0 tab 10/29/16 [Last Taken Unknown] Gabapentin 2,400 mg PO HS #90 tablet 10/29/16 [Last Taken Unknown] Valsartan [Diovan (*)] 80 mg PO BID #60 tab 10/29/16 [Last Taken Unknown] amLODIPine BESYLATE [Norvasc 5 mg (*)] 5 mg PO DAILY #30 tab 10/29/16 [Last Taken Unknown] rOPINIRole HCL [Requip 5mg (*)] 10 mg PO HS #36 tab 10/29/16 [Last Taken Unknown ] rOPINIRole HCL [Ropinirole HCl] 1 mg PO HS #63 tablet 10/29/16 [Last Taken Unknown] Longterm Antibiotics: NA Discharge Medications: Refer to the Discharge Home Medication list for PRN reason. PICC Care - Routine: N/A - Orders Services needed: Home Care, Registered Nurse, Physical Therapy, Speech Language Pathologist (cognitive/speech therapy) Home Care Face to Face: I certify that this patient was under my care and that I had the required [id number] encounter meeting the encounter requirements on the discharge day. My findings support the fact that the patient is homebound as defined in CMS Chapter 7 Medicare Benefits Manual 30.1.1, The condition of the patient is such that there exists a normal inability to leave home and consequently, leaving home would require a considerable and taxing effort. Oxygen: NA Diet Recommendation: no restrictions on diet Weigh Patient: weekly Cheema: Not applicable Wound Care Instructions: Dressing change for R perianal wound: to be done every 3 days. May change outer dressing as needed. 1) flush wound w/ normal saline; alternatively patient may shower and wash w/ soap and water, or use squirt bottle w/ tap water to cleanse. 2) pat dry. 3) apply skin prep to surrounding skin. 4) tear off small piece of Noemí Promogran Ag, and gently pack into wound using a cotton-tipped applicator. 5) cover w/ small Allevyn Life dressing (in patient's wound care supplies) or a band-aid w/ adhesive borders on all 4 sides. If dressing is becoming saturated more than 2-3/day, patient may resume wearing protective briefs and continue applying the Noemí every 3 days. Please follow up with [facility] if you need ongoing wound care: [phone]. - Labs/Radiology BMP Date: 11/01/16 Call or Fax Lab and Imaging Results to: Dr. Claros - Follow Up Care Current Providers and Referrals: LJ ALLISON [Other] - As per Instructions Nicolas Claros MD [Medical Doctor] - 3-5 days (Please schedule appointment) Jonathon Betancourt DO [Doctor of Osteopathy] - follow up in 2 weeks
--- NOTE | 2016-10-29 14:23 | PDDCSUM ---
Discharge Summary Discharge Summary: DISCHARGE SUMMARY FOLLOW-UP ITEMS: Outpatient propanolol taper by 1 mg per week Outpatient sleep study Titrate blood pressure medication Consider outpatient Holter monitor DATE OF ADMISSION: 10/28/16 DATE OF DISCHARGE: 10/29/16 DISCHARGE DIAGNOSES: 1. Acute mechanical fall 2. Acute encephalopathy 3. Chronic polypharmacy dependency 4. Suspected obstructive sleep apnea 5. Chronic hypertension 6. Chronic restless leg syndrome CONSULTATIONS: Neurology PROCEDURES / IMAGING: None CHIEF COMPLAINT: Acute fall and confusion SUBJECTIVE: Patient reports he is feeling well at time discharge, he is feeling steady on his feet PHYSICAL EXAM ON DISCHARGE: Systolic blood pressure is 110, heart rate 50, saturating 92% on room air, alert awake oriented x3 with no apparent distress, cranial nerves 2-12 are intact and tested, motor strength 5/5 bilateral upper and lower extremities, sensation intact bilaterally, concentration is 7/7, naming is 3/3, scalp laceration is well healing without any surrounding erythema LABS ON DISCHARGE: White blood cell count 6400, hemoglobin 11.9, potassium 3.8, creatinine 0.8 HOSPITAL COURSE BY PROBLEM: 1. Acute mechanical fall. The patient's chief complaint was a mechanical fall he sustained in the setting of polypharmacy, poor sleep, medical marijuana, uncontrolled restless leg syndrome. I believe all these conditions contributed to his fall. Patient sustained a minor laceration on his mid frontal scalp, which should respond to local treatment. He was seen in consultation by physical and occupational therapy, and deemed safe to ambulate at home. He will have ongoing PT and OT at home. Further recommendations regarding the contributing cause of his fall will be discussed below. 2. Acute encephalopathy. Evidenced by global brain dysfunction characterized as confusion, lethargy, all of which are an acute change from patient's baseline , secondary to the metabolic effects of polypharmacy as well as impaired sleep the tonight's preceding his presentation. Patient's mental status cleared as we reduced his ropinirole and allowed him to get a good night's sleep. He is currently mentating at baseline at time of discharge, but he continues to have what appears to be cognitive slowing secondary to the high dosages of ropinirole and gabapentin, requiring the Provigil for alertness during the day. 3. Chronic polypharmacy dependency. The patient is chronically on a combination of high-dose gabapentin, high-dose ropinirole, medical marijuana, which he uses for his restless legs syndrome and to aid him in sleeping. We counseled the patient that the combination of these medications cannot only lead to further falls, but can lead to cognitive impairment. I believe that the patient is already experiencing this effect, as he is requiring Provigil in order to maintain cognitive alertness during the daytime. The patient had run out of his home medications upon arrival to [place], and he was requesting refills. After discussion with Neurology, we decided to provide the patient with tapering instructions for his ropinirole, which will be discussed below. 4. Suspected obstructive sleep apnea. This most likely contributes the patient' s difficulty sleeping, and I would recommend an outpatient sleep study once he has established primary care. An outpatient consultation with a sleep medicine specialist will also be required as the patient is weaned off of his restless leg syndrome medications. 5. Chronic hypertension. The patient has been on 4 antihypertensive agents including Bystolic, amlodipine, valsartan, hydrochlorothiazide. The patient's systolic blood pressure ranged between 90 and 110, and his heart rate was in the 50-60 range. Consequently, we recommended discontinuing the Bystolic and hydrochlorothiazide, continuing the amlodipine and valsartan at lower dosages. Systolic blood pressure prior to discharge was 130. He seems to be tolerating these 2 medications well. Did have an isolated 3 second pause on telemetry which did not require any further intervention. Reviewed and appeared to be a junctional escape rhythm. I would recommend outpatient reassessment of his blood pressure and up titration of his valsartan and amlodipine prior to adding additional agents. Would also recommend an outpatient Holter monitor after his establish primary care. 6. Restless leg syndrome. Chronic, patient has been up titrated to very high dosages of ropinirole as well as gabapentin. Neurology consultation recommended that the patient taper his ropinirole by 1 mg per week, starting with 10 mg at this time, given that the patient has been taking 12 mg nightly up until recently. After the patient weans the medication off, then he should have a 4 week washout. Prior to initiating. This recommendations based on the suspicion that the patient's restless leg syndrome is most likely experiencing a paradoxical effect from the higher than therapeutic level dosages of the ropinirole. We will continue the gabapentin at 2400 mg at bedtime. DISCHARGE MEDICATIONS: Please see official discharge medication reconciliation sheet in chart , taper ropinirole as outlined above, continue gabapentin 2400 mg at bedtime, amlodipine 5 mg daily, valsartan 80 mg twice daily. DISCHARGE INSTRUCTIONS: Please follow up with Dr. Claros this week, Dr. Betancourt thereafter.
== END 2016-10-29 13:02 | disposition home health service (06) ==
LOC: INTOOBSV 01:25 → F2W 03:40
PROVIDERS: ADMIT Student in an Organized Health Care Education/Training Program; ATTEND Internal Medicine
PROC: 0HQ1XZZ Repair Face Skin, External Approach (ICD-10-PCS; principal; 2016-10-28)
PROC: 3E0337Z Introduction of Electrolytic and Water Balance Substance into Peripheral Vein, Percutaneous Approach (ICD-10-PCS; 2016-10-28)
DX: R55 Syncope and collapse (principal); G93.49 Other encephalopathy; T88.7XXA Unspecified adverse effect of drug or medicament, initial encounter; S01.91XA Laceration without foreign body of unspecified part of head, initial encounter; F19.20 Other psychoactive substance dependence, uncomplicated; E86.9 Volume depletion, unspecified; G25.81 Restless legs syndrome; K61.1 Rectal abscess; R00.1 Bradycardia, unspecified; R26.81 Unsteadiness on feet; G47.9 Sleep disorder, unspecified; I10 Essential (primary) hypertension; W19.XXXA Unspecified fall, initial encounter; Y92.012 Bathroom of single-family (private) house as the place of occurrence of the external cause; Y99.8 Other external cause status; Z85.72 Personal history of non-Hodgkin lymphomas
CPT/HCPCS: 12013; 70450; 71010; 72125; 92523; 93005; 93306; 96361; 96374; 97161; 97165; 99285; G0378; G8978; G8979; G8987; G8988; G8989; G9168; G9169; J1650; J2060; G0480

== ENCOUNTER → 2016-11-15 | Outpatient (CLI) | payer OTHER, BC | LOC: BHFA 09:00 | PROVIDERS: ATTEND Internal Medicine Cardiovascular Disease | DX: I49.49 Other premature depolarization (principal) ==

== ENCOUNTER 2016-11-20 10:47 | Inpatient (IN) | payer OTHER, BC ==
[2016-11-20] MEDS ORDERED: ONDANSETRON DISINTEGRATING 4 MG TAB PO PRN (12:18)
[2016-11-20] MEDS ORDERED: ONDANSETRON 4 MG/2 ML VIAL IVP PRN (12:18)
[2016-11-20 13:04] LABS: % IMMATURE GRANULYOCYTES 1.1 % (0.0-1.1); ABSOLUTE IMMATURE GRANULOCYTES 0.05 10^3/uL (0.00-0.10); ADD DIFF? NO; ADD MORPH? NO; ADD SCAN? NO; ATYPICAL LYMPHOCYTE FLAG 10 (0-99); FRAGMENT RBC FLAG 0 (0-99); HEMATOCRIT 37.5 % (40.0-51.0); HEMOGLOBIN 13.1 g/dL (13.7-17.5); LEFT SHIFT FLG 0 (0-99); LIPEMIA HEMOLYSIS FLAG 90 (0-99); MEAN CELL HEMOGLOBIN 32.3 pg (27.9-34.1); MEAN CELL HEMOGLOBIN CONCENTR. 34.9 g/dL (32.4-36.7); MEAN CELL VOLUME 92.4 fL (81.5-99.8); MEAN PLATELET VOLUME 9.4 fL (8.7-11.7); PLATELET CLUMPS FLAG 0 (0-99); PLATELET COUNT 186 10^3/uL (150-400); RED BLOOD CELL COUNT 4.06 10^6/uL (4.40-6.38); RED CELL DISTRIBUTION WIDTH 13.9 % (11.5-15.2)
--- NOTE | 2016-11-20 13:16 | CPEKG ---
Heart Rate: 47 RR Interval: 1277 P-R Interval: 180 QRSD Interval: 108 QT Interval: 520 QTC Interval: 460 P [place]: 17 QRS [place]: 38 T Wave [place]: -2 EKG Severity - BORDERLINE ECG - EKG Impression: SINUS BRADYCARDIA EKG Impression: BORDERLINE T ABNORMALITIES, INFERIOR LEADS Electronically Signed By: Edilson Garnica 20-Nov-2016 13:23:10
[2016-11-20 13:21] LABS: INR 1.12 (0.83-1.16); PROTIME(PATIENT) 14.3 SEC (12.0-15.0)
[2016-11-20 13:40] LABS: ALANINE AMINOTRANSFERASE 28 IU/L (21-72); ALBUMIN 3.6 g/dL (3.5-5.0); ALKALINE PHOSPHATASE 80 IU/L (38-126); ANION GAP 9 mEq/L (8-16); ASPARTATE AMINOTRANSFERASE 25 IU/L (17-59); BILIRUBIN,TOTAL 0.8 mg/dL (0.1-1.4); CARBON DIOXIDE 23 mEq/l (22-31); CHLORIDE 107 mEq/L (97-110); CREATININE 0.7 mg/dL (0.7-1.3); GLOMERULAR FILTRATION RATE > 60; GLUCOSE 96 mg/dL (70-100); POTASSIUM 4.2 mEq/L (3.5-5.2); SODIUM 139 mEq/L (134-144); TOTAL PROTEIN 6.3 g/dL (6.3-8.2)
[2016-11-20] MEDS: amLODIPine BESYLATE 5 MG TAB PO SCH (14:32)
--- NOTE | 2016-11-20 14:48 | PDCARPN ---
Cardiology Progress Note Chief Complaint: Patient reports episodes of fatigue and lightheadedness. Assessment/Plan: Assessment: Please see Dr. Garnica is office note from today for use as history and physical. Patient is a 76-year-old male with significant past history that includes Follicular non-Hodgkin lymphoma, hypertension, SRINI, restless legs syndrome, SVT. He has had a recent syncopal event. Recent Holter monitoring showing 6 second pause. Was brought to the office urgently, and seen by Dr. Garnica. Patient reporting no syncopal events since recent hospitalization. He does report he has occasional sensation of impending doom when he wakes up at night. Patient direct admitted to PCU. Denies of any history of chest pain or pressure. Reports no symptoms suggesting of heart failure. Echocardiogram done on previous admission of 10/28/2016 showing LV is normal in size and function, EF 65% no aortic stenosis, no AI. Trace TR. Plan: 1. Sinus arrest: Patient with recent hospitalization for syncopal event. Holter monitoring done recently showing 6 set him pause. Patient will undergo pacemaker implantation tomorrow morning, to be done by Dr. Marmolejo. He will be hospitalized overnight and be placed onto continuous cardiac monitoring. Be made NPO after midnight. If necessary, device can be done urgently. 2. Follicular non-Hodgkin lymphoma: Patient is being followed by oncology, was scheduled for IVIG infusion tomorrow. It has been postponed until pacemaker implantation. 3. SRINI: Patient has been restarted on home dose of Modafinil that was ordered by his Neurology, he reports he does not use CPAP. 4. Hypertension: Initial BP high at 160, patient reports he has taken no medications this morning. Restarted on home dosage amlodipine and valsartan. 5. Restless leg syndrome: Patient has restarted on home dose of ropinirole 6. DVT prophylaxis: Due to pending surgery, will not start him on an anticoagulation. Daniel hose have been ordered. 7. Code status: Patient reports he is a full code. 11/20/16 14:45 Subjective: He denies of any chest pain, palpitations orthopnea, near-syncope or syncopal events since previous hospitalization in October. Reviewed/Discussed With: other (Dr Garnica, Dr Marmolejo) Objective: Vital Signs (8 Hrs) Temp Pulse Resp BP Pulse Ox 11/20/16 11:49 36.4 C 54 L 16 163/93 H 93 Intake/Output (24 Hrs) 11/19/16 11/20/16 11/21/16 05:59 05:59 05:59 Other: Weight 93.1 kg - Physical Exam Constitutional: WDWN, healthy appearing Ears, Nose, Mouth, Throat: moist mucous membranes Cardiovascular: regular rate and rhythm, no murmurs, no rubs, pulses symmetric bilat, No jugular vein distention Peripheral Pulses: 1+: dorsalis-pedis (R), dorsalis-pedis (L), 2+: carotid (R), carotid (L) Respiratory: clear to auscultate bilat, no crackles, no wheezes Gastrointestinal: normoactive bowel sounds, no tenderness Skin: warm Neurologic: AAOx3 Psychiatric: cooperative, interactive, following commands ICD10 Worksheet Patient Problems: Problems Problem Status Onset Bradycardia Acute Head injury Acute Altered mental status Acute Laceration Acute
[2016-11-20] MEDS: ACETAMINOPHEN 325 MG TAB PO PRN (15:58)
[2016-11-20] MEDS: VALSARTAN 80 MG TAB PO SCH (20:07)
[2016-11-20] MEDS ORDERED: GABAPENTIN 400 MG CAP PO SCH (21:00)
[2016-11-21] MEDS ORDERED: LORazepam 1 MG TAB PO ONE ×2 (05:00→21:30)
[2016-11-21 05:22] LABS: % IMMATURE GRANULYOCYTES 1.4 % (0.0-1.1); ABSOLUTE IMMATURE GRANULOCYTES 0.07 10^3/uL (0.00-0.10); ADD DIFF? NO; ADD MORPH? NO; ADD SCAN? NO; ATYPICAL LYMPHOCYTE FLAG 0 (0-99); FRAGMENT RBC FLAG 0 (0-99); HEMATOCRIT 38.9 % (40.0-51.0); HEMOGLOBIN 13.4 g/dL (13.7-17.5); LEFT SHIFT FLG 0 (0-99); LIPEMIA HEMOLYSIS FLAG 90 (0-99); MEAN CELL HEMOGLOBIN 32.1 pg (27.9-34.1); MEAN CELL HEMOGLOBIN CONCENTR. 34.4 g/dL (32.4-36.7); MEAN CELL VOLUME 93.1 fL (81.5-99.8); MEAN PLATELET VOLUME 9.9 fL (8.7-11.7); PLATELET CLUMPS FLAG 10 (0-99); PLATELET COUNT 199 10^3/uL (150-400); RED BLOOD CELL COUNT 4.18 10^6/uL (4.40-6.38); RED CELL DISTRIBUTION WIDTH 13.6 % (11.5-15.2)
[2016-11-21 05:27] LABS: ALANINE AMINOTRANSFERASE 26 IU/L (21-72); ALBUMIN 3.8 g/dL (3.5-5.0); ALKALINE PHOSPHATASE 84 IU/L (38-126); ANION GAP 11 mEq/L (8-16); ASPARTATE AMINOTRANSFERASE 23 IU/L (17-59); BILIRUBIN,TOTAL 0.7 mg/dL (0.1-1.4); CARBON DIOXIDE 23 mEq/l (22-31); CHLORIDE 107 mEq/L (97-110); CREATININE 0.7 mg/dL (0.7-1.3); GLOMERULAR FILTRATION RATE > 60; GLUCOSE 91 mg/dL (70-100); SODIUM 141 mEq/L (134-144); TOTAL PROTEIN 6.4 g/dL (6.3-8.2)
[2016-11-21 05:30] LABS: INR 1.14 (0.83-1.16); PROTIME(PATIENT) 14.5 SEC (12.0-15.0)
[2016-11-21 05:31] LABS: APTT 30.5 SEC (23.0-38.0)
[2016-11-21] MEDS ORDERED: BACITRACIN IRRIGATION/NS 50,000 UNITS/1,000 ML BTL IRR ONE (06:00)
[2016-11-21] MEDS ORDERED: NS 1,000 ML IV ONE (06:00)
[2016-11-21] MEDS ORDERED: ceFAZolin 2 GM/DEXTROSE 100 ML IV ONE (06:00)
[2016-11-21] MEDS ORDERED: MODAFINIL 100 MG TAB PO SCH (09:00)
[2016-11-21] MEDS: MODAFINIL 200 MG PO SCH (09:05)
[2016-11-21] MEDS: amLODIPine BESYLATE 5 MG TAB PO SCH (09:06)
--- NOTE | 2016-11-21 10:34 | PDANEPAE ---
ANE History of Present Illness Pacemaker ANE Past Medical History - Cardiovascular History Hx Hypertension: Yes Hx Arrhythmias: No Hx Chest Pain: No Hx Coronary Artery / Peripheral Vascular Disease: No Hx CHF / Valvular Disease: No Hx Palpitations: Yes - Pulmonary History Hx Oxygen in Use at Home: No Hx Sleep Apnea: Yes - Endocrine History Hx Diabetes: No Hypothyroid: No Hyperthyroid: No Obesity: mild - Chronic Pain History Chronic Pain: Yes ANE Review of Systems Review of Systems: - Exercise capacity METS (RN): 4 METS ANE Patient History - Allergies Allergies/Adverse Reactions: diphenhydramine Allergy (Unknown, Verified 11/20/16 16:12) - Home Medications Home Medications: Modafinil [Provigil] 200 mg PO DAILY 10/28/16 [Last Taken 11/19/16] Naproxen Sodium [Aleve 220 MG (*)] 220 - 440 mg PO DAILY PRN 10/28/16 [Last Taken Unknown] [place]-3 Fatty Acids [Fish Oil 1000 mg (*)] 1,000 mg PO DAILY 10/28/16 [Last Taken 11/19/16] Gabapentin [Neurontin 400 MG (*)] 2,400 mg PO HS 11/20/16 [Last Taken 11/19/16] Multivitamins [Multivitamin (*)] 1 each PO DAILY 11/20/16 [Last Taken 11/19/16] Sildenafil Citrate [Viagra 25 MG (*)] 25 - 50 mg PO DAILY PRN 11/20/16 [Last Taken Unknown] Valsartan [Diovan (*)] 80 mg PO HS 11/20/16 [Last Taken 11/19/16] amLODIPine BESYLATE [Norvasc 5 mg (*)] 5 mg PO DAILY 11/20/16 [Last Taken ] rOPINIRole HCL [Requip 2mg (*)] 7 mg PO DAILY@18 11/20/16 [Last Taken 11/19/16] - Smoking Hx Smoking Status: Former smoker - Alcohol Use Alcohol Use: Occasionally - Family Anes Hx Family Anes Hx: none ANE Labs/Vital Signs - Labs Result Diagrams: 11/21/16 03:51 11/21/16 03:51 - Vital Signs Blood Pressure: 183/84 Heart Rate: 52 Respiratory Rate: 22 O2 Sat (%): 93 Height: 175.26 cm Weight: 93.1 kg ANE Physical Exam - Airway Neck exam: decreased ROM Mallampati Score: Class 3 Mouth exam: small mouth opening - Pulmonary Pulmonary: no respiratory distress - Cardiovascular Cardiovascular: regular rate and rhythym - ASA Status ASA Status: III ANE Anesthesia Plan Anesthesia Plan: GA w LMA
[2016-11-21] MEDS ORDERED: BUPIVACAINE 0.5% 30 ML SDV ONE (10:50)
[2016-11-21] MEDS ORDERED: LIDOCAINE 1% 300 MG/30 ML SDV ONE (10:50)
[2016-11-21] MEDS ORDERED: LIDO/EPI 1% **for epidural** 30 ML SDV ONE (10:50)
[2016-11-21] MEDS ORDERED: IOPAMIDOL (ISOVUE-300) 100 ML BTL ONE (10:51)
[2016-11-21] MEDS ORDERED: MIDAZOLAM 2 MG/2 ML VIAL IVP ONE (10:53)
[2016-11-21] MEDS ORDERED: MIDAZOLAM 2 MG/2 ML VIAL ONE (11:13)
--- NOTE | 2016-11-21 13:17 | POSTOPPROG ---
Post Op Note Date of Operation: 11/21/16 Surgeon: Ernie Britt/Caitlyn present in the surg proc area at time of surgery?: No Depth: Superfical (Skin SQ) EBL: Minimal Complications: NONE
--- NOTE | 2016-11-21 13:40 | CPEKG ---
Heart Rate: 70 RR Interval: 857 P-R Interval: 212 QRSD Interval: 104 QT Interval: 464 QTC Interval: 501 QRS [place]: -3 T Wave [place]: -8 EKG Severity - ABNORMAL ECG - EKG Impression: ATRIAL-PACED RHYTHM EKG Impression: PROBABLE INFERIOR INFARCT, AGE INDETERMINATE EKG Impression: PROLONGED QT INTERVAL Electronically Signed By: Edilson Garnica 21-Nov-2016 14:07:12
[2016-11-21] MEDS ORDERED: HYDROmorphONE/DILAUDID 1 MG/ML INJ IVP PRN (13:42)
[2016-11-21] MEDS ORDERED: NALOXONE HCL 0.4 MG/ML INJ IVP PRN (13:42)
[2016-11-21] MEDS ORDERED: fentaNYL 100 MCG/2 ML INJ IVP PRN (13:42)
--- NOTE | 2016-11-21 13:43 | POSTANESTH ---
Post Anesthetic Evaluation Cardiovascular Status: Normal, Stable Respiratory Status: Normal, Stable Level of Consciousness/Mental Status: Can Participate in Eval Pain Control: Adequate, Prn Tx Ordered Nausea/Vomiting Control: Adequate, Prn Tx Ordered Complications Possibly Related to Anesthesia: None Noted
--- NOTE | 2016-11-21 15:12 | CPIP ---
[f rep st] INVASIVE CARDIAC PROCEDURE DATE OF PROCEDURE: 11/21/2016 PROCEDURE PERFORMED: Dual-chamber pacemaker insertion. ANESTHESIA: General. DEVICE INFORMATION: The device is a Biotronik Edora 8DR-T serial #[id number]. This is an MRI compatib le device. The right atrial lead is a Biotronik Solia S53, serial #[id number]. The RV lead is a Biotro maxim Solia-S 60-lead serial #[id number]. The device and its components are in MRI compatible but have s pecial requirements for high intensity magnets and special requirements for chest MRI or MRI near the device. Not all MRI can be performed, even though the patient has an MRI-compatible device. COMPLICATIONS: None. INDICATIONS/APPROPRIATE USE CRITERIA: The patient has sick sinus syndrome with documented pauses of 6 seconds with a history of recent syncope, suspected to be secondary to sinus arrest. Again, he has been documented to have severe sinus bradycardia, which is symptomatic, as well as syncope related t o that problem. Of note, is that general anesthesia was required for this patient because he has severe choreoathetoi d movements with sudden and violent motion of his body which we felt would make it unsafe to perform a subclavian stick with sudden motions of his shoulder which may result in pneumothorax or hemothorax . Because of the perceived danger to the patient, anesthesia was consulted. Dr. Isidro of the [facility] felt it would be impossible to safely perform a dual-chamber pacemaker insertion in thi s patient with the use of local anesthesia, conscious or deep sedation and, therefore, general anesth esia was administered under his care. PROCEDURE IN DETAIL: After the patient was appropriately cleaned, prepped, and draped in sterile fas hion and n.p.o. status was confirmed, the skin was sharply incised with a #10 blade. Electrocautery and local pressure were used for hemostasis. Sharp and blunt dissection were used to perform a pacer pocket overlying the pectoralis major fascia. An 18-gauge Cook needle was used to gain access to th e left subclavian vein x2. A 6-Peruvian peel-away sheath was advanced over the J wire. Initially, a Solia S 53 was advanced into the distal RV apex and was found to be too short, given the tortuosity of the patient's venous anatomy. We, therefore, parked that in the right atrium and used the other J-wire to advance a second 6-Peruvian peel-away sheath into the subclavian vein. The Solia S60 was placed with care under direct fluoroscopic and angiographic guidance into the RV apex and scr ewed into place. The threshold of the device was found to be 0.6 V at 0.6 msec with a lead impedance of 604 ohms, sensing R-waves at 5.9 mV. The peel-away sheath was removed and the lead was sutured i n place. After adequate slack was obtained with 0 silk, procedure was repeated with a J curve stylet for the S53 wire which was placed in the right atrial appendage. The setscrew was firmly applied. Threshold was found to be 0.8 to 0.4 msec with a P-wave amplitude of 3.5 mV. Lead impedance with pac ing was 448 ohms. The lead the peel-away sheath. This lead peel-away sheath was removed and the nany d was sutured in place with 0 silk. The pocket was thoroughly flushed and checked for bleeding. The antibiotic-soaked gauze was removed from the pocket. Hemostasis was documented and established. The device was brought to the table. T he atrial lead serial number was checked and placed in the upper pole lead housing, the setscrew firm ly applied, documenting atrial pacing at the lower rate limit of 70. Upper rate limit was set at 130 . The ventricular lead was, likewise, checked and placed in the lower pole lead housing, the setscre w firmly applied, documenting AV sequential pacing. With proof of adequate atrial and ventricular capture, the device was sutured into place with 0 silk. The subcutaneous layer was closed with 3-0 Vicryl mattress sutures followed by 2-0 Vicryl horizonta l mattress sutures which were interrupted and finally a 4-0 Monocryl subcuticular repair with excelle nt wound edge apposition and hemostasis documented. The needle and gauze count were noted to be norm al prior to closure. Sterile dressing was applied. The patient will be taken to the post cath recovery unit in good and stable condition, where a stat p ostoperative x-ray and EKG will be obtained. IMPRESSION: Successful and uneventful dual-chamber pacemaker placement for indication of symptomatic sick sinus syndrome with syncope and documented sinus arrest with pauses as long as 6 seconds. Copy requested to: Dr. Isidro, Anesthesia Service /[id number]/MODL
--- NOTE | 2016-11-21 16:10 | ASMTCMCOM ---
CM Note CM Note Notes: 11/21/2016 Case Management Note: Reviewed chart, met w/pt. Previous admission to [facility] in October 2016. October cm d/c poc: [facility] for RN and PT. Alerted [facility] of readmission. [facility] reports that pt refused to start services in October. Pt is followed by [facility] for treatment of Non Hodgkin's lymphoma. 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 No case management d/c needs identified on this admission. Case Management d/c poc: Home w/family support when medically stable with follow up as directed. Case Management available if needs change. Date Signed: 11/21/2016 04:09 PM Electronically Signed By:Leslie Isidro RN
[2016-11-21] MEDS: MULTIVITAMINS 1 EACH TAB PO SCH (17:10)
[2016-11-21] MEDS: ACETAMINOPHEN 325 MG TAB PO PRN (18:20)
[2016-11-21] MEDS: VALSARTAN 80 MG TAB PO SCH (20:28)
[2016-11-21] MEDS ORDERED: GABAPENTIN 600MG PO SCH (21:00)
[2016-11-21] MEDS ORDERED: oxyCODONE IR 5 MG TAB PO PRN (21:15)
[2016-11-22 03:57] VITALS: TEMP 98.3; O2SAT 90
[2016-11-22 04:52] LABS: ABSOLUTE IMMATURE GRANULOCYTES 0.06 10^3/uL (0.00-0.10); ADD DIFF? NO; ADD MORPH? NO; ADD SCAN? NO; ATYPICAL LYMPHOCYTE FLAG 0 (0-99); FRAGMENT RBC FLAG 0 (0-99); HEMATOCRIT 36.9 % (40.0-51.0); HEMOGLOBIN 12.8 g/dL (13.7-17.5); LEFT SHIFT FLG 0 (0-99); LIPEMIA HEMOLYSIS FLAG 90 (0-99); MEAN CELL HEMOGLOBIN 32.3 pg (27.9-34.1); MEAN CELL HEMOGLOBIN CONCENTR. 34.7 g/dL (32.4-36.7); MEAN CELL VOLUME 93.2 fL (81.5-99.8); MEAN PLATELET VOLUME 9.8 fL (8.7-11.7); PLATELET CLUMPS FLAG 0 (0-99); PLATELET COUNT 194 10^3/uL (150-400); RED BLOOD CELL COUNT 3.96 10^6/uL (4.40-6.38); RED CELL DISTRIBUTION WIDTH 13.5 % (11.5-15.2)
[2016-11-22 05:27] LABS: ANION GAP 9 mEq/L (8-16); CALCIUM 8.4 mg/dL (8.5-10.4); CARBON DIOXIDE 25 mEq/l (22-31); CHLORIDE 105 mEq/L (97-110); CREATININE 0.8 mg/dL (0.7-1.3); GLOMERULAR FILTRATION RATE > 60; GLUCOSE 95 mg/dL (70-100); SODIUM 139 mEq/L (134-144)
[2016-11-22 08:34] VITALS: BP 133/83; PULSE 72; RESP 11
--- NOTE | 2016-11-22 08:52 | CPEKG ---
Heart Rate: 72 RR Interval: 833 P-R Interval: 170 QRSD Interval: 110 QT Interval: 440 QTC Interval: 482 P [place]: -49 QRS [place]: 7 T Wave [place]: 1 EKG Severity - ABNORMAL ECG - EKG Impression: ATRIAL-PACED COMPLEXES EKG Impression: NONSPECIFIC INTRAVENTRICULAR CONDUCTION DELAY EKG Impression: PROBABLE INFERIOR INFARCT, AGE INDETERMINATE Electronically Signed By: Edilson Garnica 22-Nov-2016 12:20:55
[2016-11-22] MEDS: MULTIVITAMINS 1 EACH TAB PO SCH (09:32)
[2016-11-22] MEDS: amLODIPine BESYLATE 5 MG TAB PO SCH (09:32)
[2016-11-22] MEDS: MODAFINIL 200 MG PO SCH (10:37)
--- NOTE | 2016-11-22 11:29 | WOCRNPDOC ---
[facility] Advanced Assessment Note - Skin Integrity Problem, Advanced Assess Right Perianal Dressing Type: Open to Air Exudate Amount: None Exudate Characteristic(s): None Abhinav Wound Tissue: Blanching, Erythema, Scarred Abhinav Wound Swelling: Mild Wound Bed Color: Red Wound Bed Constitution: Smooth Tissue (non-granular, smooth tissue at tract opening.) Site Odor: None Site Measurement - Head-to-Toe Length X Width X Depth (cm): [id number] Skin Integrity Problem Comment: Patient w/ long-standing, chronic tract from previous I&D of abscess. According to patient, this was extensive, and previously tracked from both the right and left abhinav-anal region. In the abscence of any imaging of this tract, I have no way of knowing if it is communicating w/ any substructures. Presently, wound presents as a small opening w/ a narrow tract extending 7cm. I was able to explore this w/ the blunt end of a cotton-tipped applicator, and no exudate was noted. Patient was previously under care of colorectal surgeon in [place] for treatment of this problem, but has not seen a physician for this since he moved to [place] last summer. Recommend f/u w/ colorectal surgeon. Until then, patient has been managing well w/ absorbent briefs.
--- NOTE | 2016-11-22 12:24 | GDS ---
[f rep st] DISCHARGE SUMMARY ADMISSION DIAGNOSES: 1. Sinus arrest. 2. Follicular non-Hodgkin lymphoma. 3. Obstructive sleep apnea. 4. Hypertension. 5. Restless leg syndrome. DISCHARGE DIAGNOSES: 1. Sinus arrest. 2. Status post permanent pacemaker implantation: Biotronik, with Biotronik atrial and ventricular leads. 3. Follicular non-Hodgkin lymphoma. 4. Obstructive sleep apnea. 5. Hypertension. 6. Restless leg syndrome. PROCEDURES DURING HOSPITALIZATION: 1. Electrocardiogram. 2. Permanent pacemaker implantation: Biotronik device with Biotronik atrial and ventricular leads. 3. Chest x-ray. 4. Pacemaker was checked this morning by [employer]ik ict sales representative, showing device functioning within normal limits. BRIEF HISTORY: Please see H and P. Briefly, the patient is a 76-year-old male who recently had a syncopal event in early October. As a part of his workup he was going through, he had outpatient Holter monitoring done, which noted a 6= second sinus arrest pause. He was brought into the hospital on November 20. HOSPITAL COURSE: Patient was admitted as a direct admit to PCU. There, he was placed on continuous cardiac monitoring. No significant symptoms overnight. No significant arrhythmias noted except occasional premature ventricular contraction. On the , patient was transferred to [facility], prepped for procedure , and taken to electrophysiology lab. There, Dr. Marmolejo implanted a Biotronik pacemaker with Biotronik right atrial and right ventricular leads. Due to patient's history of restless leg syndrome, general anesthesia was used. There were no complications from procedure. Ultimately he was transferred back to the CV, where postop chest x-ray was done showing no pneumothorax and no acute cardiopulmonary process. Ultimately, was transferred back to the PCU telemetry for overnight, where he has been A-paced with intrinsic ventricular beat. He denies any chest pain, shortness of breath, or lightheadedness. He has been up and walking in the unit without any difficulties. Note patient has history of a rectal abscess, which he has not been seen by anybody since moving to [place]. Wound care did see him during his hospitalization, with recommendation for him to follow-up with specialist. PHYSICAL EXAMINATION: Done today: GENERAL APPEARANCE: Medium built, mildly overweight, male. Alert and oriented to person, place, time, and situation. VITAL SIGNS: Current blood pressure 133/83, heart rate is 72, respirations 11, saturating 94% on room air. HEENT: Head is normocephalic. Lips and tongue are pink and moist with no signs of cyanosis. Conjunctivae pink. NECK: Trachea is midline. +2 carotid pulses bilateral. No auscultated bruits. No jugular vein distention. RESPIRATORY: Lungs are clear to auscultation. No rhonchi, rales or wheezes. No accessory muscle use. No intercostal muscle retraction noted. CARDIAC: Regular rate, regular rhythm, S1 , S2, no S3 or S4, gallops, rubs, or murmur noted. ABDOMEN: Soft, nontender, bowel sounds x4 quadrants. No organomegaly. No palpable masses. SKIN: [place], warm, and dry. No cyanosis. No clubbing. No peripheral edema. VASCULAR: +2 carotids bilateral, +2 radials bilateral, +1 dorsal pedal and posterior tibial pulses bilateral. SKIN: Pacemaker insertion site, left anterior chest just distal to clavicle: Incision intact with Steri-Strips. No redness, swelling, drainage, ecchymosis, or hematoma. Dressing change done at this time. LABORATORY STUDIES: Drawn from today show WBC of 5.92, hemoglobin 12.8, hematocrit 36.9, platelet count 194. Sodium 139, potassium 4.0, chloride 105, CO2 25, BUN 13, creatinine 0.8, glucose 95, calcium 8.4. It was noted on admission that patient's TSH was 0.413. STUDIES: Electrocardiogram done this morning showing atrial paced with intrinsic ventricular beats, nonspecific interventricular conduction delay. Chest x-ray: Preliminary showing no acute cardiopulmonary process. No signs of pneumothorax from this morning. Pacemaker implantation as mentioned above. DISCHARGE DISPOSITION: Patient will be discharged home in stable condition. He is under activity restrictions of not lifting more than 10 pounds with the left arm for the next 6 weeks and not lifting left arm higher than shoulder height; use other. DISCHARGE MEDICATIONS: Please see discharge med reconciliation sheet. The patient has been resumed on home medications. DISCHARGE INSTRUCTIONS: Post pacemaker discharge instructions gone over with the patient, including monitoring for signs of infection, activity restrictions , and bathing precautions. Patient has a followup device and wound check set at our office for next Friday, and he has a followup appointment with Brooklyn Butler PA-C, of our practice in 3 weeks. At the time of discharge, patient verbalizes understanding of all instructions and has no questions. He has been told that if any problems or concerns come up post discharge, he is to notify our office or return to the hospital. I have asked the patient to also follow up with his PCP regarding his wound care from previous rectal abscess. /[id number]/MODL MTDD
--- NOTE | 2016-11-22 17:50 | ASDISCHSUM ---
Discharge Information Plan Status:Home with No Needs Medically Cleared to Leave:11/22/2016 Discharge Date:11/22/2016 01:09 PM CM D/C Disposition:Home, Routine, Self-Care ADT D/C Disposition:Home, Routine, Self-Care Projected Discharge Date:11/22/2016 01:09 PM Transportation at D/C:Family Discharge Delay Reason: Follow-Up Date:11/22/2016 01:09 PM Discharge Slot: Final Diagnosis: Placement Information Patient Contact Information Contact Name:MIGUEL Relationship: Address:[address] Work Phone: City:[place] Alternate Phone: State/Zip Code:[place] [address] Email: Financial Information Financial Class: Primary Plan Desc:MEDICARE INPATIENT Primary Plan Number:[id number] Secondary Plan Desc: OUT OF STATE INDEMNITY Secondary Plan Number:[id number] Assessment Information [facility] CM Progress Note CM Note CM Note Notes: 11/21/2016 Case Management Note: Reviewed chart, met w/pt. Previous admission to [facility] in October 2016. October d/c poc: [facility] for RN and PT. Alerted [facility] of readmission. [facility] reports that pt refused to start services in October. Pt is followed by [facility] for treatment of Non Hodgkin's lymphoma. 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 No case management d/c needs identified on this admission. Case Management d/c poc: Home w/family support when medically stable with follow up as directed. Case Management available if needs change. Date Signed: 11/21/2016 04:09 PM Electronically Signed By:Leslie Isidro RN Intervention Information Intervention Type:*Incorrect Registration Date of Service:11/20/2016 02:54 PM Patient Type:Inpatient Staff Member:BHAVANA Sousa Susan Hours: Discipline: Severity: Comment: Intervention Type:*QUIGLEY-Signed Date of Service:11/21/2016 08:49 AM Patient Type:Observation Staff Member:Yadira Alejandra Hours: Discipline: Severity: Comment: Intervention Type:*Occurence 72 Date of Service:11/22/2016 02:24 PM Patient Type:Inpatient Staff Member:BHAVANA Sousa Susan Hours: Discipline: Severity: Comment:
== END 2016-11-22 13:09 | disposition home or self-care (01) | DRG 243 ==
LOC: INTOOBSV 11:33 → F2W 11:33 → OBSVTOIN 11-21 10:10
PROVIDERS: ADMIT Internal Medicine Cardiovascular Disease; ATTEND Internal Medicine Cardiovascular Disease
PROC: 02H63JZ Insertion of Pacemaker Lead into Right Atrium, Percutaneous Approach (ICD-10-PCS; principal; 2016-11-21)
PROC: 02HK3JZ Insertion of Pacemaker Lead into Right Ventricle, Percutaneous Approach (ICD-10-PCS; principal; 2016-11-21)
PROC: 0JH636Z Insertion of Pacemaker, Dual Chamber into Chest Subcutaneous Tissue and Fascia, Percutaneous Approach (ICD-10-PCS; principal; 2016-11-21)
DX: I45.5 Other specified heart block (principal); I49.5 Sick sinus syndrome; C85.90 Non-Hodgkin lymphoma, unspecified, unspecified site; G47.33 Obstructive sleep apnea (adult) (pediatric); I10 Essential (primary) hypertension; G25.81 Restless legs syndrome
CPT/HCPCS: C1785; C1898; G0378; J0690; J2250; Q9967

== ENCOUNTER 2016-12-31 20:56 | Emergency (ER) | payer OTHER, BC ==
--- NOTE | 2016-12-31 22:22 | EDPHY ---
H & P Stated Complaint: bright red blood in stool Time Seen by Provider: 12/31/16 21:24 HPI/ROS: Chief Complaint: Bleeding with bowel movement HPI: 76 year old male with a histpry of non-healing abhinav-rectal abscesses s/p lymphoma treatment went the the BR tonight and passed bright red blood into the toilet after having a formed normal bowel movement. He believes the blood came from his rectum. Denies any rectal bleeding in the past. Last colonoscopy was 2 years ago. No dark black stools. No lightheadedness or fainting. No fevers or chills. He is not on any blood thinning medications. Denies any pain. Does not have a history of hemorrhoids. ROS: 10 point Review of Systems is negative except as noted in the HPI. PMH: Pacemaker, restless legs, lymphoma Social History: No smoking, occasional alcohol, occasional marijuana Family History: non-contributory Physical Exam: Gen: Awake, Alert, No Distress HEENT: Nose: no rhinorrhea Eyes: PERRLA, EOMI Mouth: Moist mucosa Neck: Supple, no JVD Chest: nontender, lungs clear to auscultation Heart: S1, S2 normal, no murmur Abd: Soft, non-tender, no guarding Rectal: Patient has a open perirectal wound to the right of his rectum with blood present. No hemorrhoids. No rectal bleeding. No tenderness. No erythema. No fluid collections. No fluctuance. Back: no CVA tenderness, no midline tenderness Ext: no edema, non-tender Skin: no rash Neuro: CN II-XII intact, Sensation grossly intact, Strength 5/5 in bilateral upper and lower extremities - Personal History Current Tetanus/Diphtheria Vaccine: Unsure Current Tetanus Diphtheria and Acellular Pertussis (TDAP): Unsure - Medical/Surgical History Hx Asthma: No Hx Chronic Respiratory Disease: No Hx Diabetes: No Hx Cardiac Disease: Yes Hx Renal Disease: No Hx Cirrhosis: No Hx Alcoholism: No Hx HIV/AIDS: No Hx Splenectomy or Spleen Trauma: No Other PMH: lymphoma, restless leg syndrome, hypertension, sleep apnea, ongoing abcess on buttock, multiple surg related to abcess, laminectomy x 3, multiple hand surg , pacemaker - Social History Smoking Status: Former smoker Constitutional: Initial Vital Signs Temperature (C) 36.6 C 12/31/16 20:58 Heart Rate 99 10/24/17 20:58 Respiratory Rate 17 12/31/16 20:58 Blood Pressure 166/91 H 12/31/16 20:58 O2 Sat (%) 94 12/31/16 20:58 O2 Delivery Mode Room Air Allergies/Adverse Reactions: diphenhydramine Allergy (Unknown, Verified 12/31/16 21:01) metronidazole [From Flagyl] Allergy (Verified 12/31/16 21:01) Home Medications: Medication Instructions Recorded Modafinil [Provigil] 200 mg PO DAILY 10/28/16 Gabapentin [Neurontin 400 MG (*)] 2,400 mg PO HS 11/20/16 Valsartan [Diovan (*)] 80 mg PO HS 11/20/16 amLODIPine BESYLATE [Norvasc 5 mg 5 mg PO DAILY 11/20/16 (*)] Acetaminophen [Tylenol 325mg (*)] 650 mg PO Q4HRS PRN tab 11/22/16 Medical Decision Making - Diagnostics Imaging Results: Imaging Impressions Abdomen CT 12/31/16 22:30 Impression: 1. The rectum and presumably the fistula are not included in this exam. In addition, oral contrast has not yet reached the rectum. If evaluation of the fistula is desired, recommend repeat pelvic CT at approximately 1 to 2 hours to allow oral contrast to reach the rectum. 2. Partially visualized nodule in the right lower lobe. Recommend correlation with outside imaging to determine actual size and stability. Dr. Rogers discussed the above findings and recommendations by telephone with Thony Price MD on 01/01/2017 at 0019 hours. Imaging: Discussed imaging studies w/ extract mixer Radiologist ED Course/Re-evaluation: 76-year-old male with nonhealing perirectal abscesses. Patient has had bleeding from 1 tonight. I have probed with a probe and is clearly fresh blood in the wound. There is no purulence. There is no significant active bleeding at this time. Patient has not had any further significant active bleeding. CBC is normal. CT scan was obtained to evaluate for possible fistula. No obvious patent fistula noted at this time. There is some stranding in the area of the bleeding but no CT scan findings to explain the bleeding. Patient is otherwise comfortable. Will discharge with follow-up with Dr. Lombardi for further evaluation. - Data Points Laboratory Results: Laboratory Results 12/31/16 22:35 10/24/17 22:35 12/31/16 12/31/16 22:35 22:35 WBC 5.48 10^3/uL 10^3/uL (3.80-9.50) RBC 4.49 10^6/uL 10^6/uL (4.40-6.38) Hgb 14.7 g/dL g/dL (13.7-17.5) Hct 40.0 % % (40.0-51.0) MCV 89.1 fL fL (81.5-99.8) MCH 32.7 pg pg (27.9-34.1) MCHC 36.8 g/dL H g/dL (32.4-36.7) RDW 13.2 % % (11.5-15.2) Plt Count 200 10^3/uL 10^3/uL (150-400) MPV 9.0 fL fL (8.7-11.7) Neut % (Auto) 73.0 % % (39.3-74.2) Lymph % (Auto) 8.8 % L % (15.0-45.0) Brule % (Auto) 14.1 % H % (4.5-13.0) Eos % (Auto) 1.8 % % (0.6-7.6) Baso % (Auto) 0.7 % % (0.3-1.7) Nucleat RBC Rel Count 0.0 % % (0.0-0.2) Absolute Neuts (auto) 4.00 10^3/uL 10^3/uL (1.70-6.50) Absolute Lymphs (auto) 0.48 10^3/uL L 10^3/uL (1.00-3.00) Absolute Monos (auto) 0.77 10^3/uL 10^3/uL (0.30-0.80) Absolute Eos (auto) 0.10 10^3/uL 10^3/uL (0.03-0.40) Absolute Basos (auto) 0.04 10^3/uL 10^3/uL (0.02-0.10) Absolute Nucleated RBC 0.00 10^3/uL 10^3/uL (0-0.01) Immature Gran % 1.6 % H % (0.0-1.1) Immature Gran # 0.09 10^3/uL 10^3/uL (0.00-0.10) Sodium 141 mEq/L mEq/L (134-144) Potassium 3.7 mEq/L mEq/L (3.5-5.2) Chloride 97 mEq/L mEq/L (97-110) Carbon Dioxide 32 mEq/l H mEq/l (22-31) Anion Gap 12 mEq/L mEq/L (8-16) BUN 16 mg/dL mg/dL (7-23) Creatinine 0.8 mg/dL mg/dL (0.7-1.3) Estimated GFR > 60 Glucose 94 mg/dL mg/dL (70-100) Calcium 8.9 mg/dL mg/dL (8.5-10.4) Departure - Departure Disposition: Home, Routine, Self-Care Clinical Impression: Perirectal fistula Condition: Good Instructions: Anorectal Abscess and Anal Fistula (ED) Additional Instructions: Follow up with Dr. Lombardi in 2-3 days for further evaluation. Return to the emergency depart for worsening bleeding, pain, fevers, chills, or any other concerns. Referrals: Carl Rae DO [Primary Care Provider] - As per Instructions Vanessa Lombardi MD [Medical Doctor] - As per Instructions
[2016-12-31 22:48] LABS: % IMMATURE GRANULYOCYTES 1.6 % (0.0-1.1); ABSOLUTE IMMATURE GRANULOCYTES 0.09 10^3/uL (0.00-0.10); ADD DIFF? NO; ADD MORPH? NO; ADD SCAN? NO; ATYPICAL LYMPHOCYTE FLAG 0 (0-99); FRAGMENT RBC FLAG 0 (0-99); HEMOGLOBIN 14.7 g/dL (13.7-17.5); LEFT SHIFT FLG 0 (0-99); LIPEMIA HEMOLYSIS FLAG 90 (0-99); MEAN CELL HEMOGLOBIN 32.7 pg (27.9-34.1); MEAN CELL HEMOGLOBIN CONCENTR. 36.8 g/dL (32.4-36.7); MEAN CELL VOLUME 89.1 fL (81.5-99.8); PLATELET CLUMPS FLAG 0 (0-99); PLATELET COUNT 200 10^3/uL (150-400); RED BLOOD CELL COUNT 4.49 10^6/uL (4.40-6.38); RED CELL DISTRIBUTION WIDTH 13.2 % (11.5-15.2)
[2016-12-31 23:02] LABS: ANION GAP 12 mEq/L (8-16); CALCIUM 8.9 mg/dL (8.5-10.4); CARBON DIOXIDE 32 mEq/l (22-31); CHLORIDE 97 mEq/L (97-110); CREATININE 0.8 mg/dL (0.7-1.3); GLOMERULAR FILTRATION RATE > 60; GLUCOSE 94 mg/dL (70-100); POTASSIUM 3.7 mEq/L (3.5-5.2); SODIUM 141 mEq/L (134-144)
[2016-12-31] MEDS ORDERED: IOPAMIDOL (ISOVUE-300) 100 ML BTL ONE (23:34)
[2017-01-01 00:33] VITALS: RESP 16
[2017-01-01 01:54] VITALS: BP 142/82; PULSE 75; TEMP 98.1; O2SAT 97
== END 2017-01-01 02:00 | disposition home or self-care (01) ==
DX: K60.4 Rectal fistula (principal); I10 Essential (primary) hypertension; Z87.891 Personal history of nicotine dependence; Z95.0 Presence of cardiac pacemaker
CPT/HCPCS: 74177; 99285; Q9967

== ENCOUNTER 2017-10-25 | Emergency (ER) | payer OTHER, BC | END 2017-10-25 22:47 | disposition home or self-care (01) ==

== ENCOUNTER 2018-07-05 23:02 | Inpatient (IN) | payer OTHER, BC ==
--- NOTE | 2018-07-05 23:27 | EDPHY ---
H & P Stated Complaint: abd pain, N/V/D, diziness Time Seen by Provider: 07/05/18 23:19 HPI/ROS: Chief complaint: Abdominal pain, nausea, vomiting and diarrhea History of present illness: This is a 77-year-old male with multiple medical problems who presents to the emergency department for evaluation of abdominal discomfort with associated nausea and vomiting as well as diarrhea. Patient reports the onset of symptoms over the last few days. Symptoms have worsened. In addition he reports severe reflux, abdominal distension and generalized malaise. He denies precipitating factors. He denies alleviating factors. He denies other associated signs or symptoms. Review of systems: A 10 point review of systems was obtained and other than described above was negative - Personal History Current Tetanus/Diphtheria Vaccine: Unsure - Medical/Surgical History Hx Asthma: No Hx Chronic Respiratory Disease: No Hx Diabetes: No Hx Cardiac Disease: Yes Hx Renal Disease: No Hx Cirrhosis: No Hx Alcoholism: No Hx HIV/AIDS: No Hx Splenectomy or Spleen Trauma: No Other PMH: lymphoma, restless leg syndrome, hypertension, sleep apnea, ongoing abcess on buttock, multiple surg related to abcess, laminectomy x 3, multiple hand surg , pacemaker - Social History Smoking Status: Former smoker - Physical Exam Exam: General Appearance: Alert, appears generally unwell. Eyes: Pupils equal and round no pallor or injection. ENT, Mouth: Mucous membranes moist. Respiratory: There are no retractions, lungs are clear to auscultation. Cardiovascular: Regular rate and rhythm. Gastrointestinal: Abdomen is soft and non tender, no masses, bowel sounds normal. Neurological: Alert. Cranial nerves 2-12 grossly intact. Strength and sensation intact and symmetrical. Skin: Warm and dry, no rashes. Musculoskeletal: Neck is supple non tender. Extremities are symmetrical, full range of motion. Psychiatric: There is no agitation. Constitutional: Initial Vital Signs Temperature (C) 36.7 C 07/05/18 23:04 Heart Rate 77 07/05/18 23:04 Respiratory Rate 18 07/05/18 23:04 Blood Pressure 125/80 H 07/05/18 23:04 O2 Sat (%) 93 07/05/18 23:04 O2 Delivery Mode Room Air Allergies/Adverse Reactions: diphenhydramine Allergy (Unknown, Verified 11/04/17 13:35) Other-Enter Comments metronidazole [From Flagyl] Allergy (Verified 11/04/17 13:35) Hallucinations floseal Allergy (Uncoded 11/04/17 16:02) Home Medications: Medication Instructions Recorded Modafinil [Provigil] 200 mg PO DAILY 10/28/16 Irbesartan [Avapro] 300 mg PO DAILY 10/10/17 Multivitamins [Multivitamin (*)] 1 each PO DAILY 10/10/17 Vitamin B Complex [Vitamin B 1 each PO DAILY 10/10/17 Complex (OTC)] amLODIPine BESYLATE [Amlodipine 10 mg PO DAILY@1730 10/10/17 Besylate] rOPINIRole HCL [Ropinirole HCl] 12 mg PO DAILY@1730 10/10/17 Gabapentin [Neurontin] 1,800 mg PO HS 10/22/17 Heparin [Heparin SC 5000 unit/0.5 5,000 unit SC Q8HRS inj 11/11/17 ml (*)] LORazepam [Ativan (*)] 1 mg PO Q6H PRN tab 11/11/17 Melatonin [Melatonin 3 MG (*)] 3 - 6 mg PO HS PRN tab 11/11/17 Polyethylene Glycol 3350 [Miralax 17 gm PO DAILY PRN pkt 11/11/17 17 gm (*)] Sennosides/Docusate Sodium 1 - 2 tab PO BID tab 11/11/17 [Senokot-S] Vancomycin [Vancomycin (*)] 1.5 gm IV Q12H vial 11/11/17 celeCOXIB [Celebrex (*)] 200 mg PO DAILY cap 11/11/17 Medical Decision Making - Diagnostics Imaging: Discussed imaging studies w/ yard caller Radiologist ED Course/Re-evaluation: Patient is discussed with my secondary supervising physician Dr. Thony Rangel. Patient presents to the emergency department with abdominal discomfort, nausea , vomiting and diarrhea and severe reflux. Further when I talked to the patient he does appear to be getting confused. As he talks to me he quickly loses his train of thought and gets frustrated as he does not appear to be able to fully explain himself and his concerns. Blood studies largely unremarkable. Urinalysis pending. CT scan of the abdomen and pelvis with contrast shows an enteritis and colitis. I do believe patient warrants admission given his symptoms. I have consulted with Dr. Rekha Weaver of the hospitalist service and she will admit for further evaluation and care. The plan has been discussed with the patient and his daughter and they voiced understanding and agreement with it. Differential Diagnosis: Included but not limited to gastritis, gastroenteritis, biliary tract disease, pancreatitis, colitis, bowel obstruction, GERD, dehydration - Data Points Laboratory Results: Laboratory Results 07/05/18 23:15 07/05/18 23:15 07/06/18 07/05/18 07/05/18 00:03 23:36 23:15 WBC RBC Hgb POC Hgb 15.6 gm/dL gm/dL (13.7-17.5) Hct POC Hct 46 % % (40-51) MCV MCH MCHC RDW Plt Count MPV Neut % (Auto) Lymph % (Auto) [place] % (Auto) Eos % (Auto) Baso % (Auto) Nucleat RBC Rel Count Absolute Neuts (auto) Absolute Lymphs (auto) Absolute Monos (auto) Absolute Eos (auto) Absolute Basos (auto) Absolute Nucleated RBC Immature Gran % Immature Gran # POC Sodium 137 mEq/L mEq/L (135-145) Sodium 134 mEq/L L mEq/L (135-145) POC Potassium 3.4 mEq/L mEq/L (3.3-5.0) Potassium 4.0 mEq/L mEq/L (3.5-5.2) POC Chloride 99 mEq/L mEq/L (97-110) Chloride 99 mEq/L mEq/L (97-110) Carbon Dioxide 25 mEq/l mEq/l (22-31) POC Total CO2 26 mEq/L mEq/L (22-31) Anion Gap 10 mEq/L mEq/L (6-14) POC BUN 15 mg/dL mg/dL (7-23) BUN 16 mg/dL mg/dL (7-23) Creatinine 0.8 mg/dL mg/dL (0.7-1.3) POC Creatinine 0.8 mg/dL mg/dL (0.7-1.3) Estimated GFR > 60 Glucose 111 mg/dL H mg/dL (70-100) POC Glucose 112 mg/dL H mg/dL (70-100) Calcium 9.3 mg/dL mg/dL (8.5-10.4) Total Bilirubin 0.7 mg/dL mg/dL (0.1-1.4) Conjugated Bilirubin 0.4 mg/dL mg/dL (0.0-0.5) Unconjugated Bilirubin 0.3 mg/dL mg/dL (0.0-1.1) AST 37 IU/L IU/L (17-59) ALT 37 IU/L IU/L (21-72) Alkaline Phosphatase 117 IU/L IU/L (38-126) POC Troponin I 0.00 ng/mL ng/mL (0.00-0.08) Total Protein 7.0 g/dL g/dL (6.3-8.2) Albumin 4.1 g/dL g/dL (3.5-5.0) Lipase 27 IU/L IU/L (23-300) 07/05/18 23:15 WBC 9.14 10^3/uL 10^3/uL (3.80-9.50) RBC 4.95 10^6/uL 10^6/uL (4.40-6.38) Hgb 16.3 g/dL g/dL (13.7-17.5) POC Hgb Hct 44.5 % % (40.0-51.0) POC Hct MCV 89.9 fL fL (81.5-99.8) MCH 32.9 pg pg (27.9-34.1) MCHC 36.6 g/dL g/dL (32.4-36.7) RDW 13.3 % % (11.5-15.2) Plt Count 240 10^3/uL 10^3/uL (150-400) MPV 9.5 fL fL (8.7-11.7) Neut % (Auto) 77.7 % H % (39.3-74.2) Lymph % (Auto) 8.0 % L % (15.0-45.0) [place] % (Auto) 11.5 % % (4.5-13.0) Eos % (Auto) 0.9 % % (0.6-7.6) Baso % (Auto) 0.3 % % (0.3-1.7) Nucleat RBC Rel Count 0.0 % % (0.0-0.2) Absolute Neuts (auto) 7.10 10^3/uL H 10^3/uL (1.70-6.50) Absolute Lymphs (auto) 0.73 10^3/uL L 10^3/uL (1.00-3.00) Absolute Monos (auto) 1.05 10^3/uL H 10^3/uL (0.30-0.80) Absolute Eos (auto) 0.08 10^3/uL 10^3/uL (0.03-0.40) Absolute Basos (auto) 0.03 10^3/uL 10^3/uL (0.02-0.10) Absolute Nucleated RBC 0.00 10^3/uL 10^3/uL (0-0.01) Immature Gran % 1.6 % H % (0.0-1.1) Immature Gran # 0.15 10^3/uL H 10^3/uL (0.00-0.10) POC Sodium Sodium POC Potassium Potassium POC Chloride Chloride Carbon Dioxide POC Total CO2 Anion Gap POC BUN BUN Creatinine POC Creatinine Estimated GFR Glucose POC Glucose Calcium Total Bilirubin Conjugated Bilirubin Unconjugated Bilirubin AST ALT Alkaline Phosphatase POC Troponin I Total Protein Albumin Lipase Medications Given: Discontinued Medications Al Hydroxide/Mg Hydroxide (Maalox Susp) 30 ml PO ONCE ONE Stop: 07/06/18 00:45 Last Admin: 07/06/18 00:55 Dose: 30 ml Fentanyl (Sublimaze) 50 mcg IVP EDNOW ONE Stop: 07/06/18 00:43 Last Admin: 07/06/18 00:45 Dose: 50 mcg Hyoscyamine Sulfate (Levsin, Hyomax-Sl) 0.25 mg PO ONCE ONE Stop: 07/06/18 00:45 Last Admin: 07/06/18 00:55 Dose: 0.25 mg Famotidine/Sodium Chloride (Pepcid 20 Mg (Premix)) 50 mls @ 200 mls/hr IV EDNOW ONE Stop: 07/05/18 23:54 Last Admin: 07/05/18 23:55 Dose: 50 mls Lidocaine (Lidocaine 2% Viscous) 15 ml PO ONCE ONE Stop: 07/06/18 00:45 Last Admin: 07/06/18 00:55 Dose: 15 ml Ondansetron HCl (Zofran) 4 mg IVP EDNOW ONE Stop: 07/06/18 00:58 Last Admin: 07/06/18 00:58 Dose: 4 mg Point of Care Test Results: Chemistry 07/06/18 07/05/18 00:03 23:36 POC Sodium 137 mEq/L mEq/L (135-145) POC Potassium 3.4 mEq/L mEq/L (3.3-5.0) POC Chloride 99 mEq/L mEq/L (97-110) POC Total CO2 26 mEq/L mEq/L (22-31) POC BUN 15 mg/dL mg/dL (7-23) POC Creatinine 0.8 mg/dL mg/dL (0.7-1.3) POC Glucose 112 mg/dL H mg/dL (70-100) POC Troponin I 0.00 ng/mL ng/mL (0.00-0.08) ISTAT H&H 07/05/18 23:36 POC Hgb 15.6 gm/dL gm/dL (13.7-17.5) POC Hct 46 % % (40-51) Departure - Departure Disposition: [facility] Inpatient Acute Clinical Impression: Vomiting and diarrhea Abdominal pain Qualifiers: Abdominal location: generalized Qualified Code(s): R10.84 - Generalized abdominal pain Condition: Fair
[2018-07-05] MEDS ORDERED: IOPAMIDOL (ISOVUE-300) 100 ML BTL ONE (23:32)
[2018-07-05 23:33] LABS: PLATELET COUNT 240 10^3/uL (150-400)
[2018-07-05] MEDS ORDERED: FAMOTIDINE 20 MG/NACL 50 ML IV ONE (23:40)
[2018-07-06] MEDS ORDERED: fentaNYL 100 MCG/2 ML INJ IVP ONE (00:42)
[2018-07-06] MEDS ORDERED: MAG HYDROX/AL HYDROX/SIMETH 30 ML UDCUP PO ONE (00:44)
[2018-07-06] MEDS ORDERED: LIDOCAINE 2% VISCOUS 15 ML UDCUP PO ONE (00:44)
[2018-07-06] MEDS ORDERED: HYOSCYAMINE SULFATE 0.125 MG TAB PO ONE (00:44)
[2018-07-06] MEDS ORDERED: ONDANSETRON DISINTEGRATING 4 MG TAB PO PRN (00:54)
[2018-07-06] MEDS ORDERED: ONDANSETRON 4 MG/2 ML VIAL IVP PRN (00:54)
[2018-07-06] MEDS ORDERED: ONDANSETRON 4 MG/2 ML VIAL ONE (00:54)
[2018-07-06] MEDS ORDERED: ONDANSETRON 4 MG/2 ML VIAL IVP ONE (00:57)
[2018-07-06] MEDS ORDERED: NS 1,000 ML IV SCH (01:00)
[2018-07-06] MEDS: HYDROmorphONE/DILAUDID 1 MG/ML INJ IVP PRN ×3 (02:48→20:16)
--- NOTE | 2018-07-06 04:49 | PDGENHP ---
History and Physical - Chief Complaint nausea/vomiting/diarrhea/abdominal pain - History of Present Illness Source - Patient seen on the medical floor and able to provide majority of the history. He currently appears reliable. EMR reviewed and case discussed with ED provider. HPI - This is a pleasant 77 yo M with pmhx significant for lymphoma, Restless leg syndrome, HTN, SRINI, and perirectal abscess 2/2 MRSA currently on Doxycycline who presents to the ED today with his daughter for complaints of intractable nausea/vomiting/diarrhea and abdominal pain. Patient reports symptom onset in the last 1-2 days. He reports generalized abdominal pain/ cramping and distension. He had worsening sympoms late in the evening as well as severe reflux symptoms prompting him to come to ED. Patient denies any hematemesis, melena/hematochezia. He has been feeling malaise. denies any fevers/chills/sweats. + sick contact is patient's who had similar symptoms in the last several days. It was also noted that patient appeared to be slightly confused and disoriented this evening. History Information - Allergies/Home Medication List Allergies/Adverse Reactions: diphenhydramine Allergy (Unknown, Verified 11/04/17 13:35) Other-Enter Comments metronidazole [From Flagyl] Allergy (Verified 11/04/17 13:35) Hallucinations floseal Allergy (Uncoded 11/04/17 16:02) Home Medications: Modafinil [Provigil] 200 mg PO DAILY 10/28/16 [Last Taken 11/04/17] Irbesartan [Avapro] 300 mg PO DAILY 10/10/17 [Last Taken 11/04/17] Multivitamins [Multivitamin (*)] 1 each PO DAILY 10/10/17 [Last Taken 10/23/17] Vitamin B Complex [Vitamin B Complex (OTC)] 1 each PO DAILY 10/10/17 [Last Taken 10/23/17] amLODIPine BESYLATE [Amlodipine Besylate] 10 mg PO DAILY@1730 10/10/17 [Last Taken 11/03/17] rOPINIRole HCL [Ropinirole HCl] 12 mg PO DAILY@1730 10/10/17 [Last Taken ] Gabapentin [Neurontin] 1,800 mg PO HS 10/22/17 [Last Taken 08/27/18] I have personally reviewed and updated: family history, medical history, social history, surgical history - Past Medical History hypertension Additional medical history: HTN, restless leg syndrome, lymphoma, SRNII. perirectal abscess 2/2 MRSA on doxycycline. - Surgical History Additional surgical history: pacer, laminectomy x 3, hand surgery (multiple), perirectal abscess I&D. - Social History Smoking Status: Former smoker Alcohol Use: Occasionally (patient drinks 1-2 glasses of wine nightly) Drug Use: Marijuana (vaporizer helps with sleep) Additional social history: Patient is and lives with his . COR - FULL. Review of Systems Review of Systems: ROS: 10pt was reviewed & negative except for what was stated in HPI & below Constitutional: Reports: no symptoms. Denies: chills, fever EENMT: Reports: no symptoms Cardiac: Reports: no symptoms Respiratory: Reports: no symptoms Gastrointestinal: Reports: vomitting, abdominal pain, abdominal distention, diarrhea, nausea. Denies: black stools, rectal bleeding Genitourinary: Reports: no symptoms Muscolosketal: Reports: no symptoms Skin: Reports: no symptoms Neurological: Reports: other (confusion which patient acknowledges ) Hematologic/Lymphatic: Reports: no symptoms Physical Exam Physical Exam: Selected Entries 07/05/18 23:04 Blood Pressure Automatic Method Heart Rate 77 Respiratory 18 Rate O2 Sat (%) 93 Temperature (C) 36.7 C Blood Pressure 125/80 H Mean Arterial 95 Pressure (MAP) O2 Delivery Room Air Mode Temperature Oral Source Temp Pulse Resp BP Pulse Ox 36.5 C 72 18 100/68 94 07/06/18 02:26 07/06/18 02:26 07/06/18 02:26 07/06/18 02:26 07/06/18 02:26 O2 (L/minute) 1 Constitutional: no apparent distress, other (NAD. patient appears fatigued and lays in bed asleep. wakes easily to name. initially a little disoriented but improves as patient wakes up.) Eyes: PERRL, anicteric sclera, EOMI, No scleral injection Ears, Nose, Mouth, Throat: poor dentition (repairs), dry mucous membranes, other (no nasal discharge) Cardiovascular: regular rate and rhythym, no murmur, rub, or gallop (slightly distant heart sounds), pulses symmetric bilaterally, No edema Peripheral Pulses: 2+: dorsalis-pedis (R), dorsalis-pedis (L) Respiratory: no respiratory distress, no rales or rhonchi, clear to auscultation Gastrointestinal: soft, non-tender abdomen, no palpable masses, distension ( distended but soft), other (hypoactive bowel sounds), No guarding Genitourinary: no bladder tenderness, No yung in urethra Skin: warm, normal color, no rashes or abrasions Musculoskeletal: full muscle strength, other (patient sits up independently.) Neurologic: AAOx3 (patient occasionally beings replying on tangent and forgets what he meant to say. redirectable. ) Psychiatric: interacting appropriately, not anxious, No anxious, No depressed, No flat affect, No agitated Lab Data & Imaging Review 07/05/18 23:15 07/05/18 23:15 WBC 9.14 10^3/uL (3.80-9.50) 07/05/18 23:15 RBC 4.95 10^6/uL (4.40-6.38) 07/05/18 23:15 Hgb 16.3 g/dL (13.7-17.5) 07/05/18 23:15 POC Hgb 15.6 gm/dL (13.7-17.5) 07/05/18 23:36 Hct 44.5 % (40.0-51.0) 07/05/18 23:15 POC Hct 46 % (40-51) 07/05/18 23:36 MCV 89.9 fL (81.5-99.8) 07/05/18 23:15 MCH 32.9 pg (27.9-34.1) 07/05/18 23:15 MCHC 36.6 g/dL (32.4-36.7) 07/05/18 23:15 RDW 13.3 % (11.5-15.2) 07/05/18 23:15 Plt Count 240 10^3/uL (150-400) 07/05/18 23:15 MPV 9.5 fL (8.7-11.7) 07/05/18 23:15 Neut % (Auto) 77.7 % (39.3-74.2) H 07/05/18 23:15 Lymph % (Auto) 8.0 % (15.0-45.0) L 07/05/18 23:15 [place] % (Auto) 11.5 % (4.5-13.0) 07/05/18 23:15 Eos % (Auto) 0.9 % (0.6-7.6) 07/05/18 23:15 Baso % (Auto) 0.3 % (0.3-1.7) 07/05/18 23:15 Nucleat RBC Rel Count 0.0 % (0.0-0.2) 07/05/18 23:15 Absolute Neuts (auto) 7.10 10^3/uL (1.70-6.50) H 07/05/18 23:15 Absolute Lymphs (auto) 0.73 10^3/uL (1.00-3.00) L 07/05/18 23:15 Absolute Monos (auto) 1.05 10^3/uL (0.30-0.80) H 07/05/18 23:15 Absolute Eos (auto) 0.08 10^3/uL (0.03-0.40) 07/05/18 23:15 Absolute Basos (auto) 0.03 10^3/uL (0.02-0.10) 07/05/18 23:15 Absolute Nucleated RBC 0.00 10^3/uL (0-0.01) 07/05/18 23:15 Immature Gran % 1.6 % (0.0-1.1) H 07/05/18 23:15 Immature Gran # 0.15 10^3/uL (0.00-0.10) H 07/05/18 23:15 POC Sodium 137 mEq/L (135-145) 07/05/18 23:36 Sodium 134 mEq/L (135-145) L 07/05/18 23:15 POC Potassium 3.4 mEq/L (3.3-5.0) 07/05/18 23:36 Potassium 4.0 mEq/L (3.5-5.2) 07/05/18 23:15 POC Chloride 99 mEq/L (97-110) 07/05/18 23:36 Chloride 99 mEq/L (97-110) 07/05/18 23:15 Carbon Dioxide 25 mEq/l (22-31) 07/05/18 23:15 POC Total CO2 26 mEq/L (22-31) 07/05/18 23:36 Anion Gap 10 mEq/L (6-14) 07/05/18 23:15 POC BUN 15 mg/dL (7-23) 07/05/18 23:36 BUN 16 mg/dL (7-23) 07/05/18 23:15 Creatinine 0.8 mg/dL (0.7-1.3) 07/05/18 23:15 POC Creatinine 0.8 mg/dL (0.7-1.3) 07/05/18 23:36 Estimated GFR > 60 07/05/18 23:15 Glucose 111 mg/dL (70-100) H 07/05/18 23:15 POC Glucose 112 mg/dL (70-100) H 07/05/18 23:36 Calcium 9.3 mg/dL (8.5-10.4) 07/05/18 23:15 Total Bilirubin 0.7 mg/dL (0.1-1.4) 07/05/18 23:15 Conjugated Bilirubin 0.4 mg/dL (0.0-0.5) 07/05/18 23:15 Unconjugated Bilirubin 0.3 mg/dL (0.0-1.1) 07/05/18 23:15 AST 37 IU/L (17-59) 07/05/18 23:15 ALT 37 IU/L (21-72) 07/05/18 23:15 Alkaline Phosphatase 117 IU/L (38-126) 07/05/18 23:15 POC Troponin I 0.00 ng/mL (0.00-0.08) 07/06/18 00:03 Total Protein 7.0 g/dL (6.3-8.2) 07/05/18 23:15 Albumin 4.1 g/dL (3.5-5.0) 07/05/18 23:15 Lipase 27 IU/L (23-300) 07/05/18 23:15 Imaging Review: Direct [facility] preliminary CT report reviewed. - diffuse fluid filled bowel with inflammatory stranding & adjacent intraperitoneal perlita efluid. no free air. findings nonspecific but could be evidence of colitis or inflammatory enteritis. incidental finding multilevel degenerative disc disease. Visualized and Interpreted Chest x-ray results: Yes Visualized and Interpreted imaging results: Yes Visualized and Interpreted EKG results: Yes EKG additional interpertation: A paced rhythm. QTc 484. q waves inferior leads unchanged from ekg 2017. Assessment & Plan Assessment: This is a pleasant 77 yo M with pmhx significant for lymphoma, Restless leg syndrome, HTN, SRINI, and perirectal abscess 2/2 MRSA currently on Doxycycline who presents to the ED today with his daughter for complaints of intractable nausea/vomiting/diarrhea and abdominal pain. #acute gastroenteritis - patient's with similar symptoms in the last few days. suspect viral cause. patient afebrile without leukocytosis. will not initiate additional antibiotics at this time. patient reports he is on doxycycline will continue when med rec available. GI pcr panel has been ordered however patient without additional episodes of diarrhea since arrival to the floor. #Abdominal pain (Acute) - pain medications prn. currently controlled. #Vomiting and diarrhea (Acute) - patient without further episodes since arrival to floor. Supportive care and anti-emetics prn. # Confusion - patient a little disorientation. suspect possible infectious encephalopathy. continue IVF hydration and supportive care. minimize sedatives. appear to be improving slightly. chronic medical issues #hx of lymphoma #RLS - ropinerol #HTN - resume patient amlodipine #RSINI - supplemental o2 prn. #hx of perirectal abscess/MRSA - continue doxy or prescribed abx when med rec available. FEN - IVF 1 liter overnight. electrolytes adequate replacement prn. clear diet advanced to regular as tolerated. PPX - SCDs. holding anticoagulation pending re-evaluation in AM. COR - FULL. Dispo - Patient admitted to [facility] status [facility] for continued supportive care overnight wile awaiting GI studies.
--- NOTE | 2018-07-06 05:58 | CPEKG ---
Test Reason : OPEN Blood Pressure : / mmHG Vent. Rate : 078 BPM Atrial Rate : 078 BPM P-R Int : 220 ms QRS Dur : 113 ms QT Int : 424 ms P-R-T Axes : -49 -03 001 degrees QTc Int : 484 ms Atrial-paced complexes Prolonged PA interval Inferior infarct, old Confirmed by Thony Price ([id number]) on 07/06/2018 5:57:24 AM Referred By: Thony Price Confirmed By:Thony Price
[2018-07-06] MEDS ORDERED: FAMOTIDINE 20 MG/NACL 50 ML IV SCH (09:00)
--- NOTE | 2018-07-06 12:22 | ASMTCMCOM ---
CM Note CM Note Notes: CM spoke with patient in the room and with pt's RN. Pt admitted for Gastroenteritis. Pt has a home in [place] and a town home here in [place]. Pt's is currently in [place], but daughter is here and is able to provide pt with support after 13:00 each day as she works in the am. Pt also states she can stay the night with him or he can stay at her house on [place]. Pt is steady on his feet and no therapies have been ordered at this time. RN agrees pt will likely be safe to dc independently. CM to follow. D/C Plan: independent with support from daughter Date Signed: 07/06/2018 12:20 PM Electronically Signed By:Nena Rubi
--- NOTE | 2018-07-06 12:49 | HOSPPROG ---
Hospitalist Progress Note Assessment/Plan: Patient is a 77-year-old male with past medical history significant for lymphoma , restless legs syndrome, hypertension, perirectal abscess secondary to MRSA who presented the emergency department with complaints of intractable nausea vomiting diarrhea as well as abdominal pain. 1st encounter chart review. * acute viral gastroenteritis -GI PCR shows Giardia -patient recently had an episode of Giardia and was treated w Alinia -suspect he had return of symptoms being immunocompromised -will give him a one time dose of Tinidazole -trial of BRAT diet and if does well, can advance diet -he continues to have multiple episodes of diarrhea * perirectal abscess/MRSA -on doxycycline * abdominal pain -due to the above * vomiting with associated diarrhea -vomiting resolved, still having diarrhea * confusion -resolved *hx of lymphoma *restless leg syndome -Ropinirole *HTN -amlodipine *plan: Dr Mix to see, patient and his daughter know Dr Garza well. Nik has had hardware infections and they would feel better if an Infectious disease physician is seeing. He will require another midnight stay, will continue IV fluids in the setting of diarrhea. Subjective: Nik is concerned about mulitple episodes of diarrhea. Not having significant abdominal pain. Objective: Vital Signs Temp Pulse Resp BP Pulse Ox 36.4 C 78 14 145/83 H 93 07/06/18 12:00 07/06/18 12:00 07/06/18 12:00 07/06/18 12:00 07/06/18 12:00 Microbiology 07/06/18 10:40 Gastrointestinal Tract Panel (PCR) - Final Stool Giardia Lamblia 07/05/18 07/06/18 07/07/18 05:59 05:59 05:59 Intake Total 580 Output Total 300 Balance 580 -300 - Physical Exam Constitutional: no apparent distress, uncomfortable Eyes: PERRL Ears, Nose, Mouth, Throat: hard of hearing Cardiovascular: regular rate and rhythym Respiratory: no respiratory distress Gastrointestinal: normoactive bowel sounds, soft, non-tender abdomen, distension (slight) Skin: warm Neurologic: AAOx3 Psychiatric: interacting appropriately ICD10 Worksheet Patient Problems: Problems Problem Status Onset Abdominal pain Acute Vomiting and diarrhea Acute Altered mental status Acute Bradycardia Acute Head injury Acute Laceration Acute Osteoarthritis of left hip Acute Postoperative wound infection of left hip Acute
[2018-07-06] MEDS ORDERED: TINIDAZOLE 500 MG TAB PO ONE ×2 (14:43→14:45)
[2018-07-06] MEDS: DOXYCYCLINE HYCLATE 100 MG CAP/TAB PO SCH (15:15)
[2018-07-06] MEDS ORDERED: LR 1,000 ML IV SCH (15:30)
--- NOTE | 2018-07-06 17:58 | PDMN ---
Medical Necessity Medical necessity: [facility] M170 Gastroenteritis, A-2 days: 77 yo w/ intractable n/v , diarrhea and abd pain. Eval reveals acute gastroenteritis w/ some prob acute infectious encephalopathy. Initially OBS for workup/tx but pt requires additional MN for dx of Giardia, still w/ diarrhea, ID consult, cont IVF, cont IV opioids for pain. Meets [facility] IP criteria for perisistent dehydration and severe infection w/ severe abd tenderness. Change to IP status 07/06/18@1510 per [facility] order. Hx HTN, restless leg syndrome, lymphoma, SRINI. perirectal abscess 2/2 MRSA on doxycycline, pacer, laminectomy x 3, hand surgery (multiple), perirectal abscess I&D.
--- NOTE | 2018-07-06 18:36 | GCON ---
[f rep st] CONSULTATION INPATIENT INFECTIOUS DISEASE CONSULTATION DATE OF CONSULTATION: 07/06/2018 REFERRING PHYSICIAN: Anna Botello NP REASON FOR REFERRAL: Recurrent giardiasis. HISTORY OF PRESENT ILLNESS: Patient is a 77-year-old male with a past medical history of lymphoma, b ut he completed his treatment last year. He has had no treatments in over 6 months. The patient was admitted to [facility] on 07/06/2018 secondary to complaints of nausea, vomiting, diar eron, and abdominal pain. The patient reported a 1- or 2-day course prior to admission. He reports distention in his abdomen along with the pain and cramping. He also stated the he felt dizzy when he stood. The patient was admitted and rehydrated with intravenous fluids. A sample of stool was sent for a multiplex PCR study. This revealed DNA consistent with Giardia lamblia. The patient had a pr evious episode of Giardia in March while he was in [place]. He was treated with Alinia. Sympto ms improved up until this point. PAST MEDICAL HISTORY: 1. Hypertension. 2. Restless legs syndrome. 3. Lymphoma. 4. Obstructive sleep apnea. 5. Perirectal abscess. 6. History of MRSA. PAST SURGICAL HISTORY: 1. Status post pacemaker placement. 2. Status post laminectomy x3. 3. Status post multiple hand surgeries. 4. Status post perirectal abscess I and D. ANTIBIOTIC: Doxycycline (chronic use). ALLERGIES: The patient is allergic to diphenhydramine, Floseal and metronidazole (causes mild confus ion). FAMILY HISTORY: Reviewed but noncontributory. SOCIAL HISTORY: The patient is a former smoker. Has occasional alcoholic drinks. Also uses marijua na prior to bedtime for sleep. He splits his time between [facility] and [place]. REVIEW OF SYSTEMS: Other than that detailed above in his History of Present Illness, comprehensive 1 0-system review is negative. PHYSICAL EXAMINATION: VITAL SIGNS: Temperature maximum is 36.8. Temperature current is 36.4. Hear t rate is 78. Respiratory rate is 14. Blood pressure is 145/83. GENERAL: The patient is a well-fo rmed, well-nourished, elderly male in no acute distress. He is nontoxic in appearance. He is alert and oriented x3. He has a pleasant demeanor. HEENT: Normocephalic for age. Atraumatic. No sclera l icterus. No drainage from the nares. Eyes: Lids and conjunctivae are within normal limits. Pupi ls are equal and round bilaterally. NECK: Supple. No meningismus. HEART: Regular rate and rhythm . No significant peripheral edema. ABDOMEN: Soft, nontender. SKIN: Warm and dry to the touch. N o rash or lesion noted. MUSCULOSKELETAL: No muscle belly tenderness is noted. No joint line effusi on or arthritis is seen. LABORATORY DATA: Patient has a CBC dated 07/05/2018, shows white blood cell count of 9.14, hemoglobi n of 16.3, hematocrit of 44.5, and platelet count of 240. Differential is slightly left-shifted with 78% segmented neutrophils. Serum chemistries on 07/05/2018 are all within normal limits. MICROBIOLOGIC DATA: Patient has a stool GI tract PCR panel which is positive for Giardia lamblia. ASSESSMENT: Diarrhea, acute onset. 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 Jorge or abhishek itazoxanide does not have a very high parasitic clearance rate, and I think possibly that is the reas on he has recurrent disease at this point. Given that his reaction to metronidazole was as he put it today tolerable, he would prefer and I concur that he can try tinidazole at 2 g x1. We will adminis ter this to him and follow his symptoms. PLAN: 1. Treat giardiasis with tinidazole 2 g p.o. x1. 2. Follow his clinical symptoms. /[id number]/MODL
[2018-07-06] MEDS: GABAPENTIN 300 MG CAP PO SCH (20:15)
[2018-07-06] MEDS: FAMOTIDINE 20 MG TAB PO SCH (20:15)
[2018-07-07] MEDS ORDERED: MODAFINIL 100 MG TAB PO SCH (09:00)
[2018-07-07] MEDS: IRBESARTAN 150 MG TAB PO SCH (09:04)
[2018-07-07] MEDS: TAMSULOSIN HCL 0.4 MG CAP PO SCH (09:05)
[2018-07-07] MEDS: DOXYCYCLINE HYCLATE 100 MG CAP/TAB PO SCH (09:05)
[2018-07-07] MEDS: valACYclovir 500 MG TAB PO SCH (09:05)
[2018-07-07] MEDS: DULoxetine 20 MG CAP PO SCH (09:05)
[2018-07-07] MEDS: FAMOTIDINE 20 MG TAB PO SCH ×2 (09:06→21:39)
[2018-07-07] MEDS: METOPROLOL SUCCINATE XR 25 MG TAB PO SCH (09:06)
[2018-07-07] MEDS: MODAFINIL 100 MG TAB PO SCH (09:07)
--- NOTE | 2018-07-07 09:45 | HOSPPROG ---
Hospitalist Progress Note Assessment/Plan: Patient is a 77-year-old male with past medical history significant for lymphoma , restless legs syndrome, hypertension, perirectal abscess secondary to MRSA who presented the emergency department with complaints of intractable nausea vomiting diarrhea as well as abdominal pain. * acute viral gastroenteritis -GI PCR shows Giardia -patient recently had an episode of Giardia and was treated w Alinia -suspect he had return of symptoms being immunocompromised -was given one time dose of Tinidazole -no diarrhea today, had several episode last night * perirectal abscess/MRSA -on doxycycline * abdominal pain -due to the above * vomiting with associated diarrhea -vomiting last night, none further * confusion -resolved *hx of lymphoma *restless leg syndrome -Ropinirole *HTN -amlodipine *plan: Will see how he is doing throughout the day, biggest concern is dehydration. If not having diarrhea today,no vomiting; will dc later this afternoon. Subjective: Nik is feeling better this morning. No nausea, no vomiting,no diarrhea. Objective: Vital Signs Temp Pulse Resp BP Pulse Ox 37.0 C 81 14 134/79 H 93 07/07/18 08:00 07/07/18 09:06 07/07/18 08:00 07/07/18 09:06 07/07/18 08:00 Laboratory Results 07/07/18 04:20 07/06/18 07/07/18 07/08/18 05:59 05:59 05:59 Intake Total 1300 Balance 1300 - Physical Exam Constitutional: appears nourished Eyes: PERRL Ears, Nose, Mouth, Throat: hard of hearing Cardiovascular: regular rate and rhythym Respiratory: no respiratory distress Gastrointestinal: normoactive bowel sounds, other (bloated) Skin: warm Musculoskeletal: full muscle strength Neurologic: AAOx3 Psychiatric: interacting appropriately ICD10 Worksheet Patient Problems: Problems Problem Status Onset Abdominal pain Acute Vomiting and diarrhea Acute Altered mental status Acute Bradycardia Acute Head injury Acute Laceration Acute Osteoarthritis of left hip Acute Postoperative wound infection of left hip Acute
--- NOTE | 2018-07-07 10:57 | PCMIDPN ---
Assessment/Plan: # Giardia likely contributing to small bowel ileus/partial obstruction --patient received a dose of tinidazole, probably too early to assess response --KUB today confirms ongoing SB dilation, would take re-introduction of diet slowly, would hold off on surgical consult at this point as patient is not actively vomiting, does not have peritoneal signs, and there is flatus # MRSA septic L JOSE: chronic doxycycline suppression Medications 3 Generic Name Dose Route Start Last Admin Trade Name Freq PRN Reason Stop Dose Admin Valacyclovir HCl 500 mg 07/07/18 09:00 07/07/18 09:05 Valtrex PO 08/06/18 08:59 500 mg DAILY [facility] Doxycycline Hyclate 100 mg 07/06/18 14:00 07/07/18 09:05 Doxycycline Hyclate PO 08/05/18 13:59 100 mg DAILY [facility] Protocol 3 Discontinued Medications 3 Generic Name Dose Route Start Last Admin Trade Name Freq PRN Reason Stop Dose Admin Tinidazole 2,000 mg 07/06/18 14:45 07/06/18 15:15 Tindamax PO 07/06/18 14:46 2,000 mg ONCE ONE Subjective: 77 yo male well known to me relating to MRSA L JOSE septic arthritis on chronic suppressive doxycycline. Patient describes difficulty with bowel habits for approximately 6-7 months. He was diagnosed with Giardia originally in February and received Alinia. He continued to have GI symptoms and was seen by local GI doctor and underwent colonoscopy which was within normal limits. He returned to [place] about 10 days ago and had ongoing GI symptoms and worsening malaise therefore presented to the emergency room for further evaluation. Testing there showed persistent GI panel positive for Giardia and CT scan showing dilation of the small bowel. Patient last vomited at 2:00 a.m., no diarrhea since yesterday but still with flatus and abdominal "discomfort" due to distention. No fever Objective: Vital Signs Temp Pulse Resp BP Pulse Ox 37.0 C 81 14 134/79 H 93 07/07/18 08:00 07/07/18 09:06 07/07/18 08:00 07/07/18 09:06 07/07/18 08:00 Laboratory Results 07/07/18 04:20 07/06/18 07/07/18 07/08/18 05:59 05:59 05:59 Intake Total 1300 Balance 1300 General: Nontoxic-appearing male no acute distress HEENT moist mucous membranes Cardiovascular regular rate and rhythm Chest clear to auscultation bilaterally Abdomen: Significant abdominal distention very noticeable to me compared to prior exam decreased bowel sounds, no tenderness or peritoneal signs Extremities no clubbing cyanosis or edema left inguinal incision C/D/I Skin: No rashes Neuro: grossly normal - Time Spent With Patient Time Spent with Patient: greater than 35 minutes Time Spent with Patient: Greater than 35 minutes spent on this patients care, greater than 50% of time spent counseling, educating, and coordinating care regarding the above mentioned plan. ICD10 Worksheet Patient Problems: Problems Problem Status Onset Abdominal pain Acute Vomiting and diarrhea Acute Altered mental status Acute Bradycardia Acute Head injury Acute Laceration Acute Osteoarthritis of left hip Acute Postoperative wound infection of left hip Acute
[2018-07-07] MEDS: ACETAMINOPHEN 325 MG TAB PO PRN (16:25)
[2018-07-07] MEDS ORDERED: MELATONIN 3 MG TAB PO SCH (21:00)
[2018-07-07] MEDS: GABAPENTIN 300 MG CAP PO SCH (21:39)
[2018-07-08] MEDS: DULoxetine 20 MG CAP PO SCH (09:54)
[2018-07-08] MEDS: METOPROLOL SUCCINATE XR 25 MG TAB PO SCH (09:55)
[2018-07-08] MEDS: DOXYCYCLINE HYCLATE 100 MG CAP/TAB PO SCH (09:55)
[2018-07-08] MEDS: TAMSULOSIN HCL 0.4 MG CAP PO SCH (09:55)
[2018-07-08] MEDS: FAMOTIDINE 20 MG TAB PO SCH (09:57)
[2018-07-08] MEDS: IRBESARTAN 150 MG TAB PO SCH (09:57)
[2018-07-08] MEDS: valACYclovir 500 MG TAB PO SCH (09:57)
[2018-07-08] MEDS: MODAFINIL 100 MG TAB PO SCH (09:58)
--- NOTE | 2018-07-08 12:23 | PCMIDPN ---
Assessment/Plan: Assessment: 77-year-old man with small bowel ileus in the setting of Giardia lamblia infection. No further diarrhea but he continues to have poor appetite. Will continue to monitor for recurrence of diarrhea. 1. Small bowel ileus, stable 2. Giardia lamblia infection status post tinidazole 2gm 07.06.19; previous treatment with nitazoxanide in March while in [place] 3. 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 History of recurrent perirectal abscesses, resolved over the past 2 years 5. History of non-Hodgkin's lymphoma (Dx ) with receipt of rituximab through early 2018? 6. Chronic antimicrobial therapy with doxycycline due to #3 Plan: 1. Continue to monitor signs and symptoms of diarrhea after single dose with tinidazole on 07.06 2. Hold doxycycline 100mg PO BID Rick Mera MD Infectious Diseases 07/08/18 12:43 Subjective: No fever or chills in the past 24-hours. Appetite remains poor. Attempted clear liquid diet for back was but only drank a small amount due to poor appetite. No nausea or vomiting. She has not moved his bowels since the morning of 07/06. States his abdomen is uncomfortable but not frankly painful. Objective: Vital Signs Temp Pulse Resp BP Pulse Ox 36.3 C 75 16 146/87 H 93 07/08/18 07:52 07/08/18 09:55 07/08/18 07:52 07/08/18 09:57 07/08/18 07:52 Laboratory Results 07/07/18 04:20 07/07/18 07/08/18 07/09/18 05:59 05:59 05:59 Intake Total 1300 400 Balance 1300 400 Medications Discontinued Medications Generic Name Dose Route Start Last Admin Trade Name Freq PRN Reason Stop Dose Admin Tinidazole 2,000 mg 07/06/18 14:45 07/06/18 15:15 Tindamax PO 07/06/18 14:46 2,000 mg ONCE ONE Microbiology 11/06/17 11:26 Hip - Tissue Gram Stain - Final 11/06/17 11:26 Hip - Tissue Anaerobic Culture - Final MRSA Bacillus Not Anthracis/Cereus 11/06/17 11:22 Hip - Eswab Gram Stain - Final 11/06/17 11:22 Hip - Eswab Anaerobic Culture - Final MRSA 11/06/17 11:18 Hip - Eswab Gram Stain - Final 11/06/17 11:18 Hip - Eswab Anaerobic Culture - Final MRSA 07/06/18 10:40 Stool Gastrointestinal Tract Panel (PCR) - Final Giardia Lamblia Laboratory Tests 07/05/18 07/07/18 23:15 04:20 WBC 9.14 Plt Count 240 Absolute Neuts (auto) 7.10 H Absolute Lymphs (auto) 0.73 L Creatinine 0.7 Ongoing monitoring for antimicrobial toxicity with: CBC, BMP, interval historical information, and interval physical exam. - Physical Exam General Appearance: no apparent distress, non-toxic EENT: No scleral icterus Respiratory: No respiratory distress, No accessory muscle use, No crackles, No wheezing Neck: full range of motion, supple Cardiac/Chest: No bradycardia, No tachycardia, No diastolic murmur, No systolic murmur Extremities: No inflammation, No swelling Abdomen: other (Distended; hypoactive bowel sounds; mild tenderness to deep palpation throughout all 4 quadrants; soft) Skin: No erythema Neuro/Psych: alert, normal mood/affect, oriented x 3, No confused - Time Spent With Patient Time Spent with Patient: greater than 25 minutes Time Spent with Patient: Greater than 25 minutes spent on this patients care, greater than 50% of time spent counseling, educating, and coordinating care regarding the above mentioned plan. ICD10 Worksheet Patient Problems: Problems Problem Status Onset Abdominal pain Acute Vomiting and diarrhea Acute Altered mental status Acute Bradycardia Acute Head injury Acute Laceration Acute Osteoarthritis of left hip Acute Postoperative wound infection of left hip Acute
--- NOTE | 2018-07-08 18:36 | HOSPPROG ---
Hospitalist Progress Note Assessment/Plan: * Giardia enteritis -s/p Tinidazole -per ID may take a few days for full effect * Ileus vs. partial SBO -passing gas and stool -advance diet slowly * h/o lymphoma * RLS -Requip * Metabolic encephalopathy -resolved * MRSA infected left JOSE -on chronic suppressive doxycycline Subjective: Hungry. getting weaker. passing flatus and diarrhea Objective: Vital Signs Temp Pulse Resp BP Pulse Ox 36.4 C 74 16 140/87 H 95 07/08/18 15:07 07/08/18 15:07 07/08/18 15:07 07/08/18 15:07 07/08/18 15:07 Laboratory Results 07/07/18 04:20 07/07/18 07/08/18 07/09/18 05:59 05:59 05:59 Intake Total 2865 812 3976 Balance [address] reviewed - ileus vs. early SBO AXR viewed my personal interpretation is - mild ileus - Physical Exam Constitutional: no apparent distress, appears nourished, not in pain Cardiovascular: regular rate and rhythym, no murmur, rub, or gallop Respiratory: no respiratory distress, no rales or rhonchi, clear to auscultation Gastrointestinal: soft, non-tender abdomen, distension, No tenderness, No ascites, No guarding, No rebound Skin: no rashes or abrasions, no fluctuance, no induration Neurologic: AAOx3, sensation intact bilaterally Psychiatric: interacting appropriately, not anxious, not encephalopathic, thought process linear ICD10 Worksheet Patient Problems: Problems Problem Status Onset Postoperative wound infection of left hip Acute Abdominal pain Acute Vomiting and diarrhea Acute Osteoarthritis of left hip Acute Bradycardia Acute Head injury Acute Altered mental status Acute Laceration Acute
[2018-07-08] MEDS: GABAPENTIN 300 MG CAP PO SCH (20:30)
[2018-07-08] MEDS: TEMAZEPAM 15 MG CAP PO PRN (20:45)
[2018-07-09] MEDS: ACETAMINOPHEN 325 MG TAB PO PRN (07:29)
[2018-07-09] MEDS: TAMSULOSIN HCL 0.4 MG CAP PO SCH (08:48)
[2018-07-09] MEDS: METOPROLOL SUCCINATE XR 25 MG TAB PO SCH (08:48)
[2018-07-09] MEDS: MODAFINIL 100 MG TAB PO SCH (08:50)
[2018-07-09] MEDS: valACYclovir 500 MG TAB PO SCH (08:50)
[2018-07-09] MEDS: IRBESARTAN 150 MG TAB PO SCH (08:51)
[2018-07-09] MEDS: DULoxetine 20 MG CAP PO SCH (08:51)
[2018-07-09] MEDS: DOXYCYCLINE HYCLATE 100 MG CAP/TAB PO SCH (08:52)
--- NOTE | 2018-07-09 11:50 | PCMIDPN ---
Assessment/Plan: Assessment: 77-year-old man with small bowel ileus in the setting of Giardia lamblia infection. Resumption of loose bowel movements may be indicative of resolving ileus and/or failure to eradicate Giardia. Only time determine whether Giardia persistence is present. His last receipt of rituximab was 2017, failure to eradicate Giardia may be related to low IgA level. To his recollection he has been tested for antibody levels while receiving or after receiving rituximab. 1. Small bowel ileus, improved 2. Giardia lamblia infection status post tinidazole 2gm 07.06.18; previous treatment with nitazoxanide in March while in [place] 3. 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 History of recurrent perirectal abscesses, resolved over the past 2 years 5. 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 Chronic antimicrobial therapy with doxycycline due to #3 Plan: 1. Continue to monitor signs and symptoms of diarrhea after single dose with tinidazole on 07.06 2. Continue doxycycline 100mg PO BID 3. Continue acyclovir 4. Reviewed in detail potential side effects of doxycycline to include: allergy , rash, nausea, antibiotic-associated diarrhea, Clostridioides difficile colitis , photosensitivity, heart burn, pigmented rash. 5. Check IgA level Rick Mera MD Infectious Diseases 07/09/18 11:52 Subjective: No fever or chills in the past 24-hours. Tolerating oral diet with clear liquids. Had 5 loose bowel movements yesterday afternoon into the evening. No nocturnal urgency or diarrhea episodes. No loose bowel movements thus far this morning. No nausea. No rash. Appetite improving. Ambulating without difficulty. Improved since admission but not back to baseline health. Objective: Vital Signs Temp Pulse Resp BP Pulse Ox 36.5 C 73 16 140/88 H 92 07/09/18 07:24 07/09/18 07:24 07/09/18 07:24 07/09/18 08:51 07/09/18 07:24 Laboratory Results 07/07/18 04:20 07/08/18 07/09/1819 05:59 05:59 05:59 Intake Total 400 1600 Balance 400 1600 Medications Generic Name Dose Route Start Last Admin Trade Name Dai PRN Reason Stop Dose Admin Doxycycline Hyclate 100 mg 07/06/18 14:00 07/09/18 08:52 Doxycycline Hyclate PO 08/05/18 13:59 100 mg DAILY [facility] Protocol Valacyclovir HCl 500 mg 07/07/18 09:00 07/09/18 08:50 Valtrex PO 08/06/18 08:59 500 mg DAILY [facility] Microbiology 07/06/18 10:40 Stool Gastrointestinal Tract Panel (PCR) - Final Giardia Lamblia Laboratory Tests 07/05/18 07/05/18 07/07/18 23:15 23:15 04:20 WBC 9.14 Absolute Neuts (auto) 7.10 H Absolute Lymphs (auto) 0.73 L Creatinine 0.8 0.7 Ongoing monitoring for antimicrobial toxicity with: CBC, BMP, interval historical information, and interval physical exam. Discussed treatment/diagnostic testing and testing results with admitting provider(s). Personally reviewed interval laboratory results. - Physical Exam General Appearance: no apparent distress, non-toxic EENT: No scleral icterus Respiratory: No respiratory distress, No accessory muscle use, No wheezing Neck: full range of motion, supple Extremities: No erythema Abdomen: other (Slightly hypoactive bowel sounds; not distended; soft; mild diffuse tenderness to palpation) Skin: No erythema Neuro/Psych: alert, normal mood/affect, oriented x 3, No confused ICD10 Worksheet Patient Problems: Problems Problem Status Onset Abdominal pain Acute Vomiting and diarrhea Acute Altered mental status Acute Bradycardia Acute Head injury Acute Laceration Acute Osteoarthritis of left hip Acute Postoperative wound infection of left hip Acute
--- NOTE | 2018-07-09 15:49 | ASMTCMCOM ---
CM Note CM Note Notes: Patient continues to have diarrhea and low tolerance for diet. He will likely d/c soon. PT/OT have both evaluated him and cleared for home. He will d/c home w his daughter in [place] for a bit before returning to [place] where he lives 9 mos of the year. No CM needs. Date Signed: 07/09/2018 03:49 PM Electronically Signed By:Hannah Calderon RN
--- NOTE | 2018-07-09 16:58 | HOSPPROG ---
Hospitalist Progress Note Assessment/Plan: * Giardia enteritis -s/p Tinidazole -per ID may take a few days for full effect -consider re-dose Tinidazole if fails to improve * Ileus vs. partial SBO -passing gas and stool -advance diet slowly * h/o lymphoma * RLS -Requip * Metabolic encephalopathy -resolved * MRSA infected left JOSE -on chronic suppressive doxycycline Subjective: Still with tons of diarrhea Objective: Vital Signs Temp Pulse Resp BP Pulse Ox 36.3 C 87 16 147/96 H 93 07/09/18 16:16 07/09/18 13:45 07/09/18 16:16 07/09/18 16:16 07/09/18 16:16 Laboratory Results 07/07/18 04:20 07/08/18 07/09/18 07/10/18 05:59 05:59 05:59 Intake Total 400 1600 Balance 400 1600 - Physical Exam Constitutional: no apparent distress, appears nourished, not in pain Cardiovascular: regular rate and rhythym, no murmur, rub, or gallop Respiratory: no respiratory distress, no rales or rhonchi, clear to auscultation Gastrointestinal: normoactive bowel sounds, soft, non-tender abdomen, no palpable masses Skin: no rashes or abrasions, no fluctuance, no induration Neurologic: AAOx3, sensation intact bilaterally Psychiatric: interacting appropriately, not anxious, not encephalopathic, thought process linear ICD10 Worksheet Patient Problems: Problems Problem Status Onset Postoperative wound infection of left hip Acute Abdominal pain Acute Vomiting and diarrhea Acute Osteoarthritis of left hip Acute Bradycardia Acute Head injury Acute Altered mental status Acute Laceration Acute
[2018-07-09] MEDS: GABAPENTIN 300 MG CAP PO SCH (20:05)
[2018-07-09] MEDS: TEMAZEPAM 15 MG CAP PO PRN (20:10)
[2018-07-10] MEDS: ACETAMINOPHEN 325 MG TAB PO PRN ×2 (05:02→10:27)
[2018-07-10] MEDS: MODAFINIL 100 MG TAB PO SCH (08:19)
[2018-07-10] MEDS: IRBESARTAN 150 MG TAB PO SCH (08:20)
[2018-07-10] MEDS: METOPROLOL SUCCINATE XR 25 MG TAB PO SCH (08:20)
[2018-07-10] MEDS: TAMSULOSIN HCL 0.4 MG CAP PO SCH (08:20)
[2018-07-10] MEDS: DOXYCYCLINE HYCLATE 100 MG CAP/TAB PO SCH (08:20)
[2018-07-10] MEDS: DULoxetine 20 MG CAP PO SCH (08:20)
[2018-07-10] MEDS: valACYclovir 500 MG TAB PO SCH (08:20)
--- NOTE | 2018-07-10 09:58 | HOSPPROG ---
Hospitalist Progress Note Assessment/Plan: 77 yo M w giardia Giardia enteritis -s/p Tinidazole -per ID may take a few days for full effect -consider re-dose Tinidazole if fails to improve improved today outpt ID follow up Ileus vs. partial SBO -passing gas and stool -advance diet slowly tolerated full meal yesterday h/o lymphoma RLS -Requip Metabolic encephalopathy -resolved MRSA infected left JOSE -on chronic suppressive doxycycline dispo: home today > 30 minutes Subjective: ate chicken and rice last oscar. one liquid and solid BM this AM Objective: Vital Signs Temp Pulse Resp BP Pulse Ox 36.3 C 86 18 134/90 H 92 07/10/18 08:00 07/10/18 08:20 07/10/18 08:00 07/10/18 08:20 07/10/18 08:00 Laboratory Results 07/10/18 04:22 07/09/18 07/10/18 07/11/18 05:59 05:59 05:59 Intake Total 1600 1300 Output Total 650 100 Balance 1600 650 -100 - Physical Exam Constitutional: no apparent distress, appears nourished Eyes: PERRL, anicteric sclera Ears, Nose, Mouth, Throat: moist mucous membranes, hearing normal Cardiovascular: regular rate and rhythym, no murmur, rub, or gallop Respiratory: no respiratory distress, no rales or rhonchi Gastrointestinal: normoactive bowel sounds, No guarding, No rebound, No distension Genitourinary: No yung in urethra Skin: warm, normal color Musculoskeletal: full muscle strength Neurologic: AAOx3 ICD10 Worksheet Patient Problems: Problems Problem Status Onset Abdominal pain Acute Vomiting and diarrhea Acute Altered mental status Acute Bradycardia Acute Head injury Acute Laceration Acute Osteoarthritis of left hip Acute Postoperative wound infection of left hip Acute
--- NOTE | 2018-07-10 10:19 | GDS ---
[f rep st] DISCHARGE SUMMARY DISCHARGE DIAGNOSES: 1. Giardia. 2. Ileus. 3. Diarrhea. 4. History of lymphoma. 5. Restless legs syndrome. 6. 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 7. History of perirectal abscess. Please see admission history and physical by Dr. Rekha Weaver. The patient presented with abdominal pain. CT showed ileus versus small bowel obstruction with fluid-filled loops of bowel. GR PCR came back positive for Giardia lamblia. There was no clear exposure to well water or other risks for Giar yodit. He was treated with tinidazole on July 06. On the day of discharge, the patient had a combina tion of liquid/solid bowel movement; ate chicken and rice for dinner the prior evening. He is amenab le discharge. Discharged home today on his home medication regimen. He has outpatient followup in astroenterology with Dr. Kate Garza. /[id number]/MODL
[2018-07-10 11:51] VITALS: BP 111/80
--- NOTE | 2018-07-10 12:23 | ASMTCMCOM ---
CM Note CM Note Notes: CM discussed case with Riddhi RN, patient to discharge home independent with family/daughter. CM available to support if any CM/DC needs arise. Date Signed: 07/10/2018 12:22 PM Electronically Signed By:Luli Mathew
--- NOTE | 2018-07-10 12:26 | ASDISCHSUM ---
Discharge Information Plan Status:Home with No Needs Medically Cleared to Leave:07/10/2018 Discharge Date:07/10/2018 CM D/C Disposition:Home, Routine, Self-Care ADT D/C Disposition: Projected Discharge Date:07/10/2018 12:00 AM Transportation at D/C:Family Discharge Delay Reason: Follow-Up Date:07/10/2018 12:00 AM Discharge Slot:1 - 8:01 am - 12:00 noon Final Diagnosis:Giardia/Diarrhea Placement Information Patient Contact Information Contact Name:MIGUEL Relationship: Address:[address] [address] Work Phone: City:[place] Phone: [facility]/Zip Code:[place] [address] Email: Financial Information Financial Class:Medicare Primary Plan Desc:MEDICARE INPATIENT Primary Plan Number:[id number] Secondary Plan Desc: [facility] Plan Number:[id number] Assessment Information [facility] CM Progress Note CM Note CM Note Notes: CM spoke with patient in the room and with pt's RN. Pt admitted for Gastroenteritis. Pt has a home in [place] and a town home here in [place]. [place] currently in [place], but daughter is here and is able to provide pt with support after 13:00 each day as she works in the am. Pt also states she can stay the night with him or he can stay at her house on [place]. Pt is steady on his feet and no therapies have been ordered at this time. RN agrees pt will likely be safe to dc independently. CM to follow. D/C Plan: independent with support from daughter Date Signed: 07/06/2018 12:20 PM Electronically Signed By:Nena Rubi [facility] CM Progress Note CM Note CM Note Notes: Patient continues to have diarrhea and low tolerance for diet. He will likely d/c soon. PT/OT have both evaluated him and cleared for home. He will d/c home w his daughter in [place] for a bit before returning to [place] where he lives 9 mos of the year. No CM needs. Date Signed: 07/09/2018 03:49 PM Electronically Signed By:Hannah Calderon RN [facility] CM Progress Note CM Note CM Note Notes: CM discussed case with Riddhi BATEMAN, patient to discharge home independent with family/daughter. CM available to support if any CM/DC needs arise. Date Signed: 07/10/2018 12:22 PM Electronically Signed By:Luli Mathew Intervention Information Intervention Type:*Incorrect Registration Date of Service:07/06/2018 09:44 AM Patient Type:Inpatient Staff Member:Yuly Davis Hours: Discipline: Severity: Comment: Intervention Type:*QUIGLEY-Signed Date of Service:07/06/2018 02:03 PM Patient Type:Observation Staff Member:Yadira Alejandra Hours: Discipline: Severity: Comment: Intervention Type:*IM-Signed Date of Service:07/10/2018 11:06 AM Patient Type:Inpatient Staff Member:Yadira Alejandra Hours: Discipline: Severity: Comment:
--- NOTE | 2018-07-14 15:55 | PQFORM ---
PHYSICIAN QUERY FORM Needs Your Response This query form is being sent to you to assure this patient record is coded properly. Please respond to the question below: STAFFING AND SCHEDULING COORDINATOR QUESTION: Dr Norwood Confusion and Metabolic Encephalopathy were mentioned in the progress notes. There is no mention in the Discharge Summary. Do you agree with the diagnosis of: __ Confusion X Metabolic Encephalopathy __ Other (Please Specify ) __ Unable to determine Thank You Lilia IVERSON Production Control Coordinating Clerk INSTRUCTIONS FOR RESPONSE: Answer question by clicking on the "Edit Document" button. Move cursor to area below the stars. When complete, hit "Save." Click on the "Sign" button, then click "Sign" again. Type in your PIN and hit "Enter." MTDD
== END 2018-07-10 14:14 | disposition home or self-care (01) | DRG 371 ==
LOC: INTOOBSV 07-06 00:54 → F3N 07-06 01:54 → OBSVTOIN 07-06 15:10 → F1N 07-07 15:49
PROVIDERS: ADMIT Family Medicine; ATTEND Internal Medicine
DX: A07.1 Giardiasis [lambliasis] (principal); K56.7 Ileus, unspecified; G93.41 Metabolic encephalopathy; C85.90 Non-Hodgkin lymphoma, unspecified, unspecified site; G25.81 Restless legs syndrome; I10 Essential (primary) hypertension; G47.33 Obstructive sleep apnea (adult) (pediatric); Z95.0 Presence of cardiac pacemaker; Z87.891 Personal history of nicotine dependence; Z96.642 Presence of left artificial hip joint; Z79.2 Long term (current) use of antibiotics
CPT/HCPCS: 82435-PO; 82565-PO; 82784-90; 82947-PO; 84132-PO; 84295-PO; 84484-ER; 84520-PO; 85014-ER; 96365; 97161-GP; 97165-GO; J1170; J2405; J3010; Q9967